=== PATIENT | female | born 1960 | race Caucasian/White ===

== ENCOUNTER 2018-04-09 17:11 | Emergency (ER) | payer SELFPAY ==
--- NOTE | 2018-04-09 19:15 | EDPHYS ---
Physician Documentation [facility] Name: Meli Richardson Age: 57 yrs Sex: Female : 1960 Arrival Date: 04/09/2018 Time: 17:16 Bed 12 Private MD: Rupert Jimenez V ED Physician Sam Flannery HPI: 04/09 19:03 This 57 yrs old Female presents to ER via Ambulatory with complaints of Fall snw Injury - WRIST. 19:03 Details of fall: The patient fell from an upright position, while dancing. Onset: The snw symptoms/episode began/occurred suddenly, last night. Associated injuries: The patient sustained right hand, decreased range of motion, painful injury, swelling. Severity of symptoms: At their worst the symptoms were moderate. The patient has not experienced similar symptoms in the past. The patient has not recently seen a physician. Pt dancing last pm and boots slipped out from under her, pt reached back with right hand to catch her fall. Historical: - Allergies: 17:37 No Known Allergies; ph - Home Meds: 17:37 losartan-hydrochlorothiazide oral oral [Active]; ph - PMHx: 17:37 Hypertension; ph - PSHx: 17:37 partial thyroidectomy; Tubal ligation; ph - Immunization history:: Adult Immunizations. - Social history:: Smoking status: unknown. - Ebola Screening: : No symptoms or risks identified at this time. ROS: 19:02 Constitutional: Negative for fever, chills, and weight loss, Eyes: Negative for injury, snw pain, redness, and discharge, ENT: Negative for injury, pain, and discharge, Neck: Negative for injury, pain, and swelling, Cardiovascular: Negative for chest pain, palpitations, and edema, Respiratory: Negative for shortness of breath, cough, wheezing, and pleuritic chest pain, Abdomen/GI: Negative for abdominal pain, nausea, vomiting, diarrhea, and constipation, Back: Negative for injury and pain, : Negative for injury, bleeding, discharge, and swelling, Skin: Negative for injury, rash, and discoloration, Neuro: Negative for headache, weakness, numbness, tingling, and seizure, Psych: Negative for depression, anxiety, suicide ideation, homicidal ideation, and hallucinations. 19:02 MS/extremity: Positive for injury or acute deformity, decreased range of motion, pain, swelling, tenderness, of the right wrist/forearm. Exam: 19:01 Constitutional: This is a well developed, well nourished patient who is awake, alert, snw and in no acute distress. Head/Face: Normocephalic, atraumatic. Eyes: Pupils equal round and reactive to light, extra-ocular motions intact. Lids and lashes normal. Conjunctiva and sclera are non-icteric and not injected. Cornea within normal limits. Periorbital areas with no swelling, redness, or edema. ENT: Nares patent. No nasal discharge, no septal abnormalities noted. Tympanic membranes are normal and external auditory canals are clear. Oropharynx with no redness, swelling, or masses, exudates, or evidence of obstruction, uvula midline. Mucous membranes moist. Neck: Trachea midline, no thyromegaly or masses palpated, and no cervical lymphadenopathy. Supple, full range of motion without nuchal rigidity, or vertebral point tenderness. No Meningismus. Chest/axilla: Normal chest wall appearance and motion. Nontender with no deformity. No lesions are appreciated. Cardiovascular: Regular rate and rhythm with a normal S1 and S2. No gallops, murmurs, or rubs. Normal PMI, no JVD. No pulse deficits. Respiratory: Lungs have equal breath sounds bilaterally, clear to auscultation and percussion. No rales, rhonchi or wheezes noted. No increased work of breathing, no retractions or nasal flaring. Abdomen/GI: Soft, non-tender, with normal bowel sounds. No distension or tympany. No guarding or rebound. No evidence of tenderness throughout. Back: No spinal tenderness. No costovertebral tenderness. Full range of motion. Skin: Warm, dry with normal turgor. Normal color with no rashes, no lesions, and no evidence of cellulitis. Neuro: Awake and alert, GCS 15, oriented to person, place, time, and situation. Cranial nerves II-XII grossly intact. Motor strength 5/5 in all extremities. Sensory grossly intact. Cerebellar exam normal. Normal gait. Psych: Awake, alert, with orientation to person, place and time. Behavior, mood, and affect are within normal limits. 19:01 Musculoskeletal/extremity: Extremities: grossly normal except: ROM: limited active range of motion due to pain, Circulation is intact in all extremities. Sensation intact. Vital Signs: 17:36 BP 171 / 109; Pulse 85; Resp 18; Temp 97.8; Pulse Ox 97% on R/A; Weight 69.4 kg; Height ph 5 ft. 7 in. (170.18 cm); Pain 6/10; 17:37 ph 19:45 BP 173 / 95; Pulse 74; Resp 18; Pulse Ox 98% ; tl3 17:36 Body Mass Index 23.96 (69.40 kg, 170.18 cm) ph 17:37 Pt reports that she forgot to take her losartan this morning ph MDM: 18:31 Patient medically screened. snw 19:16 Data reviewed: vital signs, nurses notes. Data interpreted: Pulse oximetry: on room air snw is 97 %. Interpretation: normal. Counseling: I had a detailed discussion with the patient and/or guardian regarding: the historical points, exam findings, and any diagnostic results supporting the discharge/admit diagnosis, the presence of at least one elevated blood pressure reading (>120/80) during this emergency department visit, radiology results, the need for outpatient follow up, to return to the emergency department if symptoms worsen or persist or if there are any questions or concerns that arise at home. Special discussion: I have referred the patient to see his PCP for further evaluation of high blood pressure. Based on the history and exam findings, there is no indication for further emergent testing or inpatient evaluation. I discussed with the patient/guardian the need to see the orthopedic surgeon for further evaluation of the symptoms. I discussed with the patient/guardian the need to see the primary care provider for further evaluation of the symptoms. 04/09 17:55 Order name: Forearm Right XRAY; Complete Time: 19:56 snw 04/09 19:01 Order name: Sugar Tong Forearm Splint; Complete Time: 19:43 snw 04/09 19:01 Order name: Sling; Complete Time: 19:43 snw Administered Medications: 19:43 Drug: [place] 5 mg-325 mg 1 tabs Route: PO; tl3 19:43 Follow up: Response: Medication administered at discharge. tl3 Disposition: 04/09/18 19:15 Discharged to Home. Impression: Fall on same level, unspecified, Right distal radius fracture. - Condition is Stable. - Discharge Instructions: Cast or Splint Care, Adult, Forearm Fracture, Hypertension, RICE for Routine Care of Injuries, How to Use a Sling. - Prescriptions for Tylenol- Codeine #3 300-30 mg Oral Tablet - take 2 tablets by ORAL route every 6 hours As needed; 16 tablet. - Work release form, Medication Reconciliation Form, Thank You Letter, Antibiotic Education, Prescription Opioid Use form. - Follow up: Glen Pritchett MD; When: 2 - 3 days; Reason: Recheck today's complaints, Continuance of care, Re-evaluation by your physician. Addendum: 04/16/2018 11:48 Co-signature as Attending Physician, Sam Flannery MD. g s Signatures: Dispatcher [employer] EDMS Addie Fischer, GRAPHIC ARTS TECHNICIAN-C GRAPHIC ARTS TECHNICIAN-Csnw Cheyanne Bland, RN RN Sam Flannery MD MD Radha Cano, CHELSEA RN tl3 Corrections: (The following items were deleted from the chart) 04/09 20:06 19:15 04/09/2018 19:15 Discharged to Home. Impression: Fall on same level, unspecified; tl3 Right distal radius fracture. Condition is Stable. Forms are Medication Reconciliation Form, Thank You Letter, Antibiotic Education, Prescription Opioid Use. Follow up: Dr. Glen Pritchett; When: 2 - 3 days; Reason: Recheck today's complaints, Continuance of care, Re-evaluation by your physician. snw
--- NOTE | 2018-04-09 19:15 | ER ---
Nurse's Notes [facility] Name: Meli Richardson Age: 57 yrs Sex: Female : 1960 Arrival Date: 04/09/2018 Time: 17:16 Bed 12 Private MD: Rupert Jimenez V Diagnosis: Fall on same level, unspecified;Right distal radius fracture Presentation: 04/09 17:32 Presenting complaint: Patient states: Reports falling last night while out dancing, c/o ph pain to R wrist and R buttock, denies LOC or head injury, reports difficulty moving R wrist. Transition of care: patient was not received from another setting of care. Onset of symptoms was April 09, 2018. Risk Assessment: Do you want to hurt yourself or someone else? Patient reports no desire to harm self or others. Initial Sepsis Screen: Does the patient meet any 2 criteria? No. Patient's initial sepsis screen is negative. Does the patient have a suspected source of infection? No. Patient's initial sepsis screen is negative. Care prior to arrival: Medication(s) given: Motrin, 800 mg, 1700. 17:32 Method Of Arrival: Ambulatory ph 17:32 Acuity: CALLY 4 ph Triage Assessment: 19:47 General: Appears uncomfortable, Behavior is calm, cooperative, appropriate for age. tl3 Historical: - Allergies: 17:37 No Known Allergies; ph - Home Meds: 17:37 losartan-hydrochlorothiazide oral oral [Active]; ph - PMHx: 17:37 Hypertension; ph - PSHx: 17:37 partial thyroidectomy; Tubal ligation; ph - Immunization history:: Adult Immunizations. - Social history:: Smoking status: unknown. - Ebola Screening: : No symptoms or risks identified at this time. Screenin:46 Abuse screen: Denies threats or abuse. Nutritional screening: No deficits noted. tl3 Tuberculosis screening: No symptoms or risk factors identified. Fall Risk None identified. Assessment: 19:46 Pain: Complains of pain in right hand. tl3 Vital Signs: 17:36 BP 171 / 109; Pulse 85; Resp 18; Temp 97.8; Pulse Ox 97% on R/A; Weight 69.4 kg; Height ph 5 ft. 7 in. (170.18 cm); Pain 6/10; 17:37 ph 19:45 BP 173 / 95; Pulse 74; Resp 18; Pulse Ox 98% ; tl3 17:36 Body Mass Index 23.96 (69.40 kg, 170.18 cm) ph 17:37 Pt reports that she forgot to take her losartan this morning ph ED Course: 17:16 Patient arrived in ED. sb2 17:16 Rupert Jimenez MD is Private Physician. sb2 17:36 Triage completed. ph 17:38 Arm band placed on. ph 17:55 Add[facility] Fischer [facility]C [facility] snw 17:55 Sam Flannery MD is Attending Physician. snw 18:49 Forearm Right XRAY In Process Unspecified. EDMS 19:04 Glen Pritchett MD is Referral Physician. snw 19:46 Patient has correct armband on for positive identification. tl3 19:46 No provider procedures requiring assistance completed. Patient did not have IV access tl3 during this emergency room visit. 19:59 Orthoglass splint: Sugar tong splint applied on right arm. ds4 Administered Medications: 19:43 Drug: [place] 5 mg-325 mg 1 tabs Route: PO; tl3 19:43 Follow up: Response: Medication administered at discharge. tl3 Outcome: 19:15 Discharge ordered by . snw 19:46 Discharged to home ambulatory. tl3 19:46 Condition: stable 19:46 Discharge instructions given to patient, Instructed on discharge instructions, follow up and referral plans. medication usage, Demonstrated understanding of instructions, follow-up care, medications, splint care, Prescriptions given X 1. 20:06 Patient left the ED. tl3 Signatures: Dispatcher [employer] EDMS Addie Fischer FNP-C RE RECORDING MIXER-CsnFranklyn Segura ds4 Cheyanne Bland, RN RN Natacha Mitchell sb2 Radha Cano, RN RN tl3
[2018-04-09] MEDS ORDERED: HYDROCODONE/APAP 5/325 MG TAB ONE (19:46)
--- NOTE | 2018-04-09 19:55 | RAD REPORT ---
EXAM DESCRIPTION: RAD - Forearm Right - 04/09/2018 6:49 pm CLINICAL HISTORY: Fall, arm pain COMPARISON: None. FINDINGS: Transverse fracture of the distal radius is present 8 mm from the articular surface. No di straction or angulation. Ulna fracture is not identified. Carpal bones are normally positioned. Soft tissue swelling present around the wrist joint. There is no dislocation or periosteal reaction noted. No foreign body seen. IMPRESSION: Distal radius fracture without distraction or angulation.
== END 2018-04-09 20:06 | disposition home or self-care (01) ==
LOC: ER 17:11
DX: S52.501A Unspecified fracture of the lower end of right radius, initial encounter for closed fracture (principal); W01.0XXA Fall on same level from slipping, tripping and stumbling without subsequent striking against object, initial encounter; Y93.41 Activity, dancing; Y92.838 Other recreation area as the place of occurrence of the external cause; I10 Essential (primary) hypertension
CPT/HCPCS: 99284

== ENCOUNTER 2023-08-23 10:15 | Observation (INO) | payer BC ==
--- OUTSIDE RECORDS SUMMARY | 2023-08-23 10:18 | XMS REPORT | Continuity of Care Document ---
Author Name Unknown Address [address] [place] [address] [facility] thconnect Address [address] [place] [address] Care Team Providers Care Process Environmental Technician Name Role Phone Unavailable Unavailable Unavailable Results Test Description Test Time Test Comments Results Result Co mments Source COMPREHENSIVE METABOLIC [id number] 05:21:52* Test Item Value Reference Range Interpretation Comme nts GLUCOSE (test code = 2217) 97 MG/DL 70-99 BUN (test code = 2208) 10 MG/DL 8-23 CREATININE (test code = 2214) 0.92 MG/DL 0.60-1.30 eGFR (2020 CKD-EPI) (test code = 25807) 71 ML/MIN/1.73 >60 CALC BUN/CREAT (test code = 2235) 11 RATIO 6-28 SODIUM (test code = 2231) 144 MEQ/L 133-146 POTASSIUM (test code = 2228) 4.6 MEQ/L 3.5-5.4 CHLORIDE (test code = 2215) 108 MEQ/L 95-107 H CARBON DIOXIDE (test code = 2206) 27 MEQ/L 19-31 CALCIUM (test code = 2209) 9.8 MG/DL 8.5-10.5 PROTEIN, TOTAL (test code = 2229) 7.0 G/DL 6.1-8.3 ALBUMIN (test code = 2201) 4.4 G/DL 3.5-5.2 CALC GLOBULIN (test code = 2240) 2.6 G/DL 1.9-3.7 CALC A/G RATIO (test code = 2234) 1.7 RATIO 1.0-2.6 BILIRUBIN, TOTAL (test code = 2207) 0.4 MG/DL See_Comment [Automated me ssage] The system which generated this result transmitted reference range: <=1.2. The reference range was not used to interpret this result as normal/abnormal. ALKALINE PHOSPHATASE (test code = 2204) 92 U/L 40-140 AST (test code = 2218) 20 U/L 9-40 ALT (test code = 2219) 20 U/L 5-40 UNLESS OTHERWISE INDICATED, ALL TESTING PERFORMED [facility] [address] [place] [id number] GANG MINER: LUIZA IVAN M.D. CLIA NUMBER [id number] [facility] [place]. [id number]
[2023-08-23] MEDS ORDERED: ONDANSETRON 4 MG/2 ML VIAL ONE ×2 (10:37→13:36)
[2023-08-23] MEDS ORDERED: MORPHINE 4 MG/ML SYR ONE (10:37)
[2023-08-23] MEDS ORDERED: KETOROLAC 30 MG/ML INJ ONE ×2 (10:37→13:36)
[2023-08-23 10:40] LABS: Absolute Lymphocytes (CBC) 0.6 K/uL (0.7-4.9); Absolute Monocytes 0.9 K/uL (0.1-1.3); Absolute Neutrophil 15.9 K/uL (1.8-8.0); Basophils % 0.2 % (0-1.3); Hematocrit 38.7 % (36.0-45.0); Hemoglobin 12.8 g/dL (12.0-15.0); Lymphocytes % 3.7 % (15.3-44.8); MCH 28.2 pg (27.0-35.0); MCHC 33.2 g/dL (32.0-36.0); MCV 84.9 fL (80-100); MPV 6.9 fL (7.6-11.3); Neutrophils % 91.1 % (41.7-73.7); Platelets 431 thou/uL (152-406); RBC Red Blood Cell Count 4.55 M/uL (3.86-4.86); Red Cell Distribution Width 15.5 % (12.1-15.2)
[2023-08-23 10:57] LABS: Albumin 3.3 g/dL (3.4-5.0); Albumin/Globulin Ratio 0.8 (1.1-1.8); Anion Gap 9.4 mEq/L (5.0-15.0); Bilirubin Total 0.6 mg/dL (0.2-1.0); Globulin 4.2 g/dL (2.3-3.5); Potassium 3.4 mEq/L (3.5-5.1); Protein, Total 7.5 g/dL (6.4-8.2)
--- NOTE | 2023-08-23 11:34 | RAD REPORT ---
EXAM DESCRIPTION: CTAbdomen Pelvis W Contrast - 08/23/2023 11:18 am CLINICAL HISTORY: Abdominal pain. ABD PAIN COMPARISON: No comparisons TECHNIQUE: Biphasic CT imaging of the abdomen and pelvis was performed with 100 ml non-ionic IV cont rast. All CT scans are performed using dose optimization technique as appropriate and may include automated exposure control or mA/KV adjustment according to patient size. FINDINGS: The lung bases are clear.Large hiatal hernia. The liver, spleen, pancreas, adrenal glands and kidneys are within normal limits. No bowel obstruction, free air, free fluid or abscess. Mild sigmoid diverticulosis coli without diver ticulitis. Significant dilatation of the appendix which contains an appendicolith measure up to 20 mm . Moderate right lower quadrant surrounding inflammatory changes. Findings likely indicate acute appe ndicitis. No evidence of significant lymphadenopathy. No suspicious bony findings. IMPRESSION: Moderately severe acute appendicitis.
--- NOTE | 2023-08-23 11:42 | EDPHYS ---
Physician Documentation [facility] Name: Meli Richardson Age: 63 yrs Sex: Female : 1960 Arrival Date: 08/23/2023 Time: 10:15 Bed 14 Private MD: ED Physician Jose Luis Wilkes HPI: 08/22 10:30 This 63 yrs old Female presents to ER via Wheelchair with complaints of ec2 Abdominal Pain. 10:30 Patient arrives today for evaluation of right-sided abdominal pain. Patient reports ec2 that she has been having pain since yesterday. Patient reports associated nausea and decreased p.o. intake. Reports no urinary complaints, no stool changes. Patient reports previous tubal ligation. Denies any previous abdominal surgeries otherwise. Patient with history of hypertension, takes hydrochlorothiazide and losartan, is a daily smoker as well half pack per day.. Historical: - Allergies: 10:27 No Known Allergies; ll1 - PMHx: 10:20 Hypertension; ll1 10:27 Hypercholesterolemia; ll1 - PSHx: 10:27 None; ll1 - Immunization history:: Adult Immunizations up to date. - Social history:: Smoking status: Patient reports the use of cigarette tobacco products, smokes one-half pack cigarettes per day. ROS: 10:30 Constitutional: as per hpi ec2 Exam: 10:30 Constitutional: GEN: NAD Head: atraumatic Eyes: EOMI Ears: External ears are ec2 normal. CV: regular rate LUNGS: no respiratory distress ABD: non-distended, soft, minimally tender in the right lower quadrant, no guarding, not rigid SKIN: no evidence of rashes MSK: no evidence of trauma NEURO: moves all extremities equally Vital Signs: 10:28 Temp 98.1; Weight 64.41 kg; Height 5 ft. 6 in. ; Pain 10/10; ll1 10:30 BP 125 / 86; Pulse 93; Resp 15; Pulse Ox 96% on R/A; ko1 10:37 BP 123 / 111 RA Sitting (auto/reg); Pulse 95 MON; Resp 19 S; Pulse Ox 99% on R/A; jg11 12:30 BP 128 / 98; Pulse 91; Resp 16; Temp 99.5(O); Pulse Ox 97% on R/A; Pain 5/10; tl4 10:28 Body Mass Index 22.92 (64.41 kg, 167.64 cm) ll1 10:28 Pain Scale: Adult ll1 12:30 Pain Scale: Adult tl4 Keyanna Coma Score: 12:30 Eye Response: spontaneous(4). Motor Response: obeys commands(6). Verbal Response: tl4 oriented(5). Total: 15. MDM: 10:24 Patient medically screened. ec2 10:30 ED course: Patient arrives today for evaluation of right lower quadrant abdominal pain. ec2 Examination remarkable for well-appearing nontoxic but was otherwise in no acute distress with a reassuring examination with some right lower quadrant TTP. Will obtain lab work, urine studies, CT imaging and treat the patient's symptoms. Currently evaluating for processes such as obstruction, pancreatitis, intra-abdominal process.. 10:54 ED course: CBC shows leukocytosis.. ec2 11:40 ED course: Patient with appendicitis noted on CT scan. Will add on septic workup given ec2 that we have now identified an infectious process with the SIRS criteria. Will admit with surgical consultation. Discussed case with surgery as well as hospitalist, pending admission.. 11:42 Data reviewed: vital signs. ec2 08/22 10:30 Order name: CBC with Diff ec2 08/22 10:30 Order name: CMP; Complete Time: 11:00 ec2 08/22 10:30 Order name: Lipase; Complete Time: 11:00 ec2 08/22 10:43 Order name: CBC Smear Scan EDMS 08/22 11:40 Order name: Blood Culture Adult (2) ec2 08/22 11:40 Order name: Lactate w/ 2H reflex if indic. ec2 08/22 11:40 Order name: Protime (+inr) ec2 08/22 11:40 Order name: Ptt, Activated ec2 08/22 12:14 Order name: Basic Metabolic Panel EDMS 08/22 12:14 Order name: Basic Metabolic Panel EDMS 08/22 12:14 Order name: Basic Metabolic Panel EDMS 08/22 12:14 Order name: CBC with Automated Diff EDMS 08/22 12:14 Order name: CBC with Automated Diff EDMS 08/22 12:14 Order name: CBC with Automated Diff EDMS 08/22 10:30 Order name: CT Abd/Pelvis - IV Contrast Only; Complete Time: 11:40 ec2 08/22 11:40 Order name: EKG; Complete Time: 11:41 ec2 08/22 12:14 Order name: CONS Physician Consult EDAZ 08/22 10:30 Order name: IV Saline Lock; Complete Time: 10:38 ec2 08/22 10:30 Order name: Labs collected and sent; Complete Time: 10:38 ec2 08/22 11:40 Order name: Accucheck; Complete Time: 11:43 ec2 08/22 11:40 Order name: Cardiac monitoring; Complete Time: 11:42 ec2 08/22 11:40 Order name: EKG - Nurse/Tech; Complete Time: 12:48 ec2 08/22 11:40 Order name: IV Saline Lock - Large Bore; Complete Time: 11:43 ec2 08/22 11:40 Order name: O2 Per Protocol; Complete Time: 11:42 ec2 08/22 11:40 Order name: O2 Sat Monitoring; Complete Time: 11:42 ec2 08/22 11:40 Order name: Vital Signs; Complete Time: 11:42 ec2 08/22 11:40 Order name: NPO; Complete Time: 11:42 ec2 Administered Medications: 10:39 Drug: Ondansetron IVP 4 mg IVP once; over 2 minutes Route: IVP; Site: left antecubital; ko1 12:09 Follow up: Response: No adverse reaction tl4 10:47 Drug: TORadol - Ketorolac IVP 15 mg IVP once Route: IVP; Site: left antecubital; ko1 12:09 Follow up: Response: No adverse reaction; Pain is decreased tl4 10:48 Drug: morphine IVP or IV 4 mg IVP once over 4 mins Route: IVP; Infused Over: 4 mins; ko1 Site: left antecubital; 12:10 Follow up: Response: No adverse reaction; Pain is decreased tl4 12:20 Drug: Piperacillin-Tazobactam IVPB 3.375 grams IVPB once over 60 mins; (mix in NS 100 tl4 mL) Route: IVPB; Rate: 100 ml/hr; Infused Over: 60 mins; Site: left antecubital; Delivery: Primary tubing; 13:08 Follow up: Response: No adverse reaction; IV Status: Completed infusion; IV Intake: tl4 100ml Disposition Summary: 08/23/23 11:42 Hospitalization Ordered Notes: Hospitalization Status: Inpatient Admission ec2 Condition: Stable ec2 Problem: new ec2 Symptoms: have improved ec2 Bed/Room Type: Standard ec2 Provider: Helio Camarillo(08/23/23 11:54) ec2 Location: [facility] ER HOLD(08/23/23 13:03) kb3 Room Assignment: ERHOLD-(08/23/23 13:03) kb3 Diagnosis - Acute appendicitis with localized peritonitis ec2 - Sepsis, unspecified organism ec2 Forms: - Medication Reconciliation Form ec2 - SBAR form ec2 - Leadership Thank You Letter ec2 Critical care time excluding procedures: 11:40 Critical care time: Bedside Care: 30 minutes, Consultation: 10 minutes. Total time: 40 ec2 minutes Signatures: Dispatcher [employer] EDMS Krysta Gamble RN RN ll1 Gwen Barahona RN RN kb3 Fiordaliza Duran RN RN ko1 Jose Luis Wilkes MD MD ec2 Raudel Pearson RN RN tl4 Corrections: (The following items were deleted from the chart) 10:54 10:30 ED course: Patient arrives today for evaluation of right lower quadrant abdominal ec2 pain. Examination remarkable for well-appearing nontoxic but was otherwise in no acute distress with a reassuring examination with some right lower quadrant TTP. Will obtain lab work, urine studies, CT imaging and treat the patient's symptoms. Currently railing present such as obstruction, pancreatitis, intra-abdominal process.. ec2 11:48 11:42 Edmund Torrez ec2 ec2 11:50 11:48 Rupert Jimenez ec2 ec2 11:54 11:50 Edmund Torrez ec2 ec2 13:03 11:42 Telemetry/MedSurg (Inpatient) ec2 kb3 13:03 11:42 ec2 kb3
--- NOTE | 2023-08-23 11:42 | ER ---
Nurse's Notes [facility] Name: Meli Richardson Age: 63 yrs Sex: Female : 1960 Arrival Date: 08/23/2023 Time: 10:15 Bed 14 Private MD: Diagnosis: Acute appendicitis with localized peritonitis;Sepsis, unspecified organism Presentation: 08/22 10:28 Chief complaint: Patient states: R sided abdominal pain started 9 AM yesterday. ll1 Coronavirus screen: Vaccine status: Patient reports receiving the 2nd dose of the covid vaccine. Client denies travel out of the [place] in the last 14 days. At this time, the client does not indicate any symptoms associated with coronavirus-19. Ebola Screen: Patient denies travel to an Ebola-affected area in the 21 days before illness onset. Initial Sepsis Screen: Does the patient meet any 2 criteria? No. Patient's initial sepsis screen is negative. Does the patient have a suspected source of infection? No. Patient's initial sepsis screen is negative. Risk Assessment: Do you want to hurt yourself or someone else? Patient reports no desire to harm self or others. Onset of symptoms was August 22, 2023. 10:28 Method Of Arrival: Wheelchair ll1 10:28 Acuity: CALLY 3 ll1 Triage Assessment: 10:28 General: Appears uncomfortable, Behavior is calm, cooperative, appropriate for age. ll1 Pain: Complains of pain in abdomen Quality of pain is described as aching. GI: Reports lower abdominal pain. Historical: - Allergies: 10:27 No Known Allergies; ll1 - PMHx: 10:20 Hypertension; ll1 10:27 Hypercholesterolemia; ll1 - PSHx: 10:27 None; ll1 - Immunization history:: Adult Immunizations up to date. - Social history:: Smoking status: Patient reports the use of cigarette tobacco products, smokes one-half pack cigarettes per day. Screenin:[facility] ED Fall Risk Assessment (Adult) History of falling in the last 3 months, ko1 including since admission No falls in past 3 months (0 pts) Confusion or Disorientation No (0 pts) Intoxicated or Sedated No (0 pts) Impaired Gait No (0 pts) Mobility Assist Device Used No (0 pt) Altered Elimination No (0 pt) Score/Fall Risk Level 0 - 2 = Low Risk Oriented to surroundings, Maintained a safe environment, Educated pt \T\ family on fall prevention, incl call for assistance when getting out of bed, Assessed \T\ reinforced patient's understanding of fall precautions, Provided non-skid footwear, Hourly rounding (assess needs \T\ fall precautionary measures) done, Used ambulatory aids as needed (educated on \T\ assisted with), Used gait belt as appropriate. Abuse screen: Denies threats or abuse. Denies injuries from another. Nutritional screening: No deficits noted. Tuberculosis screening: No symptoms or risk factors identified. Assessment: 10:30 General: Appears uncomfortable, Behavior is cooperative, appropriate for age, anxious. ko1 Pain: Complains of pain in abdomen. Neuro: No deficits noted. Cardiovascular: No deficits noted. Respiratory: No deficits noted. GI: Bowel sounds present X 4 quads. Abd is soft X 4 quads. : No deficits noted. EENT: No deficits noted. Derm: No deficits noted. Musculoskeletal: No deficits noted. 12:15 Reassessment: No changes from previously documented assessment. Patient and/or family tl4 updated on plan of care and expected duration. Pain level reassessed. Patient is alert, oriented x 3, equal unlabored respirations, skin warm/dry/pink. Pt states pain is getting worse. Will notify provider. Will continue to monitor. Vital Signs: 10:28 Temp 98.1; Weight 64.41 kg; Height 5 ft. 6 in. ; Pain 10/10; ll1 10:30 BP 125 / 86; Pulse 93; Resp 15; Pulse Ox 96% on R/A; ko1 10:37 BP 123 / 111 RA Sitting (auto/reg); Pulse 95 MON; Resp 19 S; Pulse Ox 99% on R/A; jg11 12:30 BP 128 / 98; Pulse 91; Resp 16; Temp 99.5(O); Pulse Ox 97% on R/A; Pain 5/10; tl4 10:28 Body Mass Index 22.92 (64.41 kg, 167.64 cm) ll1 10:28 Pain Scale: Adult ll1 12:30 Pain Scale: Adult tl4 Vitals: 12:30 Cardiac Rhythm Assessment Regular Sinus rhythm. tl4 [place] Coma Score: 12:30 Eye Response: spontaneous(4). Motor Response: obeys commands(6). Verbal Response: tl4 oriented(5). Total: 15. ED Course: 10:17 Patient arrived in ED. rg4 10:18 Jose Luis Wilkes MD is Attending Physician. ec2 10:20 Fiordaliza Duran, RN is Primary Nurse. ko1 10:20 Arm band placed on Patient placed in an exam room, on a stretcher. ll1 10:28 Triage completed. ll1 10:30 Patient has correct armband on for positive identification. Bed in low position. Call ko1 light in reach. Side rails up X2. Provided Education on: na. Client placed on continuous cardiac and pulse oximetry monitoring. NIBP monitoring applied. healthcare recruiter on. 10:30 No provider procedures requiring assistance completed. ko1 10:37 Initial lab(s) drawn, by me, sent to lab. Inserted saline lock: 22 gauge in left jg11 antecubital area, using aseptic technique. Blood collected. 10:38 Warm blanket given. jg11 10:38 CBC with Diff Sent. jg11 10:38 CMP Sent. jg11 10:38 Lipase Sent. jg11 11:20 CT Abd/Pelvis - IV Contrast Only In Process Unspecified. EDMS 11:41 Edmund Torrez MD is Hospitalizing Provider. ec2 11:48 Rupert Jimenez MD is Hospitalizing Provider. ec2 11:50 Jose Luis Wilkes MD is Hospitalizing Provider. ec2 11:50 Edmund Torrez MD is Hospitalizing Provider. ec2 11:54 Helio Camarillo MD is Hospitalizing Provider. ec2 11:55 First set of blood cultures drawn by me. ko1 12:01 Lactate w/ 2H reflex if indic. Sent. ko1 12:01 Protime (+inr) Sent. ko1 12:01 Ptt, Activated Sent. ko1 12:49 Blood Culture Adult (2) Sent. tl4 12:50 Placed in gown. Door closed. Lights dimmed. Warm blanket given. tl4 12:55 Second set of blood cultures drawn by me, EKG done, by ED staff, reviewed by Helio Camarillo MD. 13:05 Patient admitted, IV remains in place. tl4 Administered Medications: 10:39 Drug: Ondansetron IVP 4 mg IVP once; over 2 minutes Route: IVP; Site: left antecubital; ko1 12:09 Follow up: Response: No adverse reaction tl4 10:47 Drug: TORadol - Ketorolac IVP 15 mg IVP once Route: IVP; Site: left antecubital; ko1 12:09 Follow up: Response: No adverse reaction; Pain is decreased tl4 10:48 Drug: morphine IVP or IV 4 mg IVP once over 4 mins Route: IVP; Infused Over: 4 mins; ko1 Site: left antecubital; 12:10 Follow up: Response: No adverse reaction; Pain is decreased tl4 12:20 Drug: Piperacillin-Tazobactam IVPB 3.375 grams IVPB once over 60 mins; (mix in NS 100 tl4 mL) Route: IVPB; Rate: 100 ml/hr; Infused Over: 60 mins; Site: left antecubital; Delivery: Primary tubing; 13:08 Follow up: Response: No adverse reaction; IV Status: Completed infusion; IV Intake: tl4 100ml Medication: 10:30 VIS not applicable for this client. ko1 Intake: 13:08 IV: 100ml; Total: 100ml. tl4 Outcome: 11:42 Decision to Hospitalize by Provider. ec2 13:07 Admitted to OR accompanied by nurse, via wheelchair, with chart, tl4 13:07 Condition: stable 13:07 Instructed on the need for admit, 13:08 Patient left the ED. tl4 Signatures: Dispatcher [employer] Sharon Gutierrez rg4 Krysta Gamble RN RN ll1 Fiordaliza Duran RN RN ko1 Jose Luis Wilkes MD MD ec2 Raudel Pearson RN RN tl4 Jarret Rubio jg11
[2023-08-23 11:57] LABS: Blood Morphology Comment NOT SEEN (NOT SEEN); Dohle Bodies PRESENT; Platelet Estimate INCR; White Blood Cell Scan OK (OK)
[2023-08-23] MEDS ORDERED: NA CHLORIDE 0.9% 100 ML ONE (12:13)
[2023-08-23] MEDS ORDERED: PIPERACIL/TAZO 3.375 GM VIAL IV ONE (12:13)
[2023-08-23 12:15] LABS: PT Prothrombin Time 11.5 SECONDS (9.5-12.5); PTT, Activated Partial Thromb 26.4 SECONDS (24.3-36.9); Protime INR 1.05
--- NOTE | 2023-08-23 12:19 | P.HP ---
Certification for Inpatient Patient admitted to: Observation With expected LOS: <2 Midnights Patient will require the following post-hospital care: None Practitioner: I am a practitioner with admitting privileges, knowledge of patient current condition, hospital course, and medical plan of care. Services: Services provided to patient in accordance with Admission requirements found in Title 42 Section 412.3 of the Code of Federal Regulations <Addie Medellin - Last Filed: 08/23/23 14:29> Patient History Date of Service: 08/23/23 Reason for admission: acute appendicitis History of Present Illness: Ms. rick is a 63-year-old with a past medical history of hypertension who smokes 1/2 pack/day of cigarettes. She arrived to the ER today with a chief complaint of significant right lower quadrant pain, anorexia, nausea. She has not been able to tolerate foods for greater than [address] evaluation she was found to have moderately severe acute appendicitis. Dr. Baron was consulted, he evaluated her in the emergency department, and took her to the OR for an appendectomy. Home medications list reviewed: No - Past Medical/Surgical History Has patient received pneumonia vaccine in the past: No Diabetic: No -: HTN -: Thyroid cyst -: Removal of thyroid cyst at age 11 -: BTL Psychosocial/ Personal History: Lives at home with her . Smokes 1/2 ppd unless they are drinking. She states when they drink, she chain smokes - Family History Family History: Reviewed- Non-Contributory - Social History Smoking Status: Current every day smoker Alcohol use: Yes CD- Drugs: No Caffeine use: Yes Place of Residence: Home <Addie Medellin - Last Filed: 08/23/23 14:29> Date of Service: 08/23/23 <Helio Camarillo - Last Filed: 08/25/23 03:53> Allergies No Known Allergies Allergy (Unverified 08/23/23 12:21) Review of Systems 10-point ROS is otherwise unremarkable General: As per HPI Gastrointestinal: Abdominal Pain <Addie Medellin - Last Filed: 08/23/23 14:29> Physical Examination - Physical Exam General: Alert, In no apparent distress, Oriented x3, Other (thin, appears dehydrated) HEENT: Atraumatic, Normocephalic Neck: Supple, JVD not distended Respiratory: Normal air movement Cardiovascular: No edema, Normal pulses, Regular rate/rhythm Capillary refill: <2 Seconds Gastrointestinal: Hypoactive, Other (assessed post pain medication ), Tenderness Musculoskeletal: No clubbing, No swelling Integumentary: No rashes Neurological: Normal speech, Normal tone Lymphatics: No axilla or inguinal lymphadenopathy External genitalia: Deferred Rectal: Deferred - Studies Laboratory Data (last 24 hrs) 08/23/23 08/23/23 08/23/23 11:50 10:33 10:33 WBC 17.40 H Hgb 12.8 Hct 38.7 Plt Count 431 H PT 11.5 INR 1.05 APTT 26.4 Sodium 133 L Potassium 3.4 L BUN 6 L Creatinine 0.85 Glucose 146 H Total Bilirubin 0.6 AST 11 L ALT 24 Alkaline Phosphatase 85 Lipase 32 <Addie Medellin - Last Filed: 08/23/23 14:29> Assessment and Plan - Plan Acute appendicitis: Consult Dr. Baron Appendectomy Zosyn 3.375gms Q 6h Sepsis without shock: trend vital signs, labs, continue IV abx IVF as above dictates Hypokalemia, NPO status: Ns at 125ml/hr monitor and replete electrolytes clear liquids when cleared by Dr. Baron Essential Hypertension: trend blood pressure reconcile home medications and treat prn SCDs for DVT prophylaxis as she is surgical today Code Status: full Discharge Plan: Home Plan to discharge in: 48 Hours - Advance Directives Does patient have a Living Will: No Does patient have a Durable POA for Healthcare: No <Addie Medellin - Last Filed: 08/23/23 14:29> Date of Service: 08/23/23 Patient is seen and examined. Agree with findings as mentioned above. Patient status post appendectomy and placement is clinically doing well. Continue monitoring labs closely. Gentle hydration and IV antibiotics. <Helio Camarillo - Last Filed: 08/25/23 03:53>
[2023-08-23] MEDS: KCL 20 MEQ/100 mL IVPB 20 MEQ/100 ML BAG IV SCH (13:00)
[2023-08-23] MEDS: NA CHLORIDE 0.9% 1,000 ML IV SCH (13:00)
[2023-08-23] MEDS: Ringers Lactate 1,000 ML IV ONE (13:07)
[2023-08-23] MEDS ORDERED: FENTANYL CITR 100 MCG/2 ML ONE (13:36)
[2023-08-23] MEDS ORDERED: MIDAZOLAM HCL 2 MG/2 ML INJ ONE (13:36)
[2023-08-23] MEDS ORDERED: propofoL 200 MG/20 ML VIAL IV ONE (13:36)
[2023-08-23] MEDS ORDERED: LIDOCAINE 2% MPF 5 ML VIAL ONE (13:36)
[2023-08-23] MEDS ORDERED: dexAMETHasone 10 MG/ML VIAL ONE (13:36)
[2023-08-23] MEDS ORDERED: ROCURONIUM 50 MG/5 ML VIAL IV ONE (13:37)
[2023-08-23] MEDS ORDERED: MORPHINE 4 MG/ML SYR IV PRN (14:30)
[2023-08-23] MEDS: BUPIVACAINE 0.5% PF 10 ML VIAL ONE (14:43)
[2023-08-23] MEDS ORDERED: NEOSTIGMINE 1 MG/ML -10 ML VIAL ONE (15:33)
--- NOTE | 2023-08-23 15:41 | P.OP ---
Date of Service: 08/23/23 Preop diagnosis: Acute appendicitis Postop diagnosis: Acute suppurative appendicitis with appendicolith Procedure performed: Laparoscopic appendectomy Surgeon: Rich Baron MD Railroad Supervisor Of Engines: Taylor VERA Estimated blood loss: Minimal Specimen: Appendix and appendicolith Findings: As above Anesthesia: General Complications: None Drains: None Fluids and blood products: Nonapplicable Disposition: Recovery room Operative note: Patient brought to the OR and placed in supine position. General anesthesia began. Patient prepped and draped in usual sterile fashion. Marcaine 0.5% infiltrated locally. 15 blade used to make a 1 cm supraumbilical midline incision. Subcutaneous tissue divided and bleeding controlled with cautery. Fascia identified and divided. #1 Vicryl stay suture placed. Peritoneal cavity entered with sharp and blunt dissection. 12 mm trocar placed into the peritoneal cavity under direct vision. Pneumoperitoneum established. Then, two 5 mm trocars placed under direct vision1 in the suprapubic region and 1 in the left lower quadrant. Laparoscopy revealed acute retrocecal appendicitis with the tip being very friable and the appendicolith visible near the tip. No other evidence of disease identified. Endo RAÚL stapling device and ligature used to divide the mesoappendix. The entire appendix and appendicolith retrieved to the umbilicus via Endo Catch bag. Right side of the abdomen irrigated and effluent clear. No evidence of bleeding or bowel injury appreciated. Minimal oozing noted on the mesoappendix which was easily controlled with vascular clips. Subsequently all trocars removed under direct vision. Stay sutures tied to each other to reapproximate the fascial defect. Subcutaneous wounds irrigated and bleeding controlled cautery. 3-0 chromic used to reapproximate subcutaneous tissue and barney used to close skin. Sterile dressing applied and patient awakened. Patient taken to recovery room in good general condition. CC: Dr. Jimenez's office
[2023-08-23] MEDS ORDERED: HYDROMORPHONE HCL 1 MG/ML INJ IV PRN (15:55)
[2023-08-23] MEDS: INSULIN REGULAR (HUMAN) 100 UNIT/ML SQ SCH (16:30)
[2023-08-23 16:51] VITALS: BMI 22.8
--- NOTE | 2023-08-23 17:16 | PREOPCON ---
Date of Consultation: 08/23/2023 Reason For Consultation: Abdominal pain. History Of Present Illness: The patient is a 63-year-old female who comes in with approximately 24-h our history of diffuse abdominal pain localizing to the right lower quadrant associated with some alberto sea. No vomiting and no diarrhea. Occasional constipation. No blood in her stool. No dysuria or h ematuria. No sore throat, runny nose, cough, headaches, or dizziness. No chest pain. Subjective fe eling of fever and chills, but none documented. Review of Systems: Otherwise, unremarkable. Past Medical History: History of hypertension. Past Surgical History: Thyroid surgery, when she was a child younger. Allergies: NO ALLERGIES. Social History: The patient does smoke and drink alcohol. She was counseled on the importance of ce ssation of tobacco. Family History: Noncontributory. Physical Examination: Vital Signs: Stable and she is afebrile. General: She is awake, alert, oriented x3. Head and Neck: Cranial nerves 2 through 12 are grossly within normal limits. No neck masses. No JV D. Throat clear. Neck is supple. Chest: Clear. Heart: S1, S2. Abdomen: Soft. Nondistended. Mild Rovsing sign. Positive bowel sounds. Right middle and right lo wer quadrant tenderness with rebound. No rigidity or guarding. Extremity: Adequately perfused. Nontender. Neuro: Nonfocal. Laboratory Data: Reviewed. Patient has leukocytosis with a left shift. Electrolytes noted and INR is within normal limits. CT scan of the abdomen and pelvis reveals a dilated appendix with marked in flammation around it consistent with acute appendicitis. Assessment: Acute appendicitis. Plan: Admit, NPO, IV fluid, IV antibiotic, to the OR for laparoscopic appendectomy, possible open. The patient understands risks, benefits, and alternatives and agrees to procedure. /MODL Voice ID: [id number] Report ID: [id number]
[2023-08-23] MEDS ORDERED: ONDANSETRON 4 MG/2 ML VIAL IV PRN (18:30)
[2023-08-23] MEDS: PIPER TAZO 3.375 GM in NA CHLORIDE 0.9% 100 ML IV SCH (20:23)
[2023-08-23] MEDS: ONDANSETRON 4 MG/2 ML VIAL IV PRN (20:24)
[2023-08-23] MEDS: HYDROCODONE/APAP 7.5/325 MG TAB PO PRN (20:24)
[2023-08-24 06:29] LABS: Anion Gap 7.7 mEq/L (5.0-15.0); Magnesium 2.6 mg/dL (1.6-2.4); Phosphorus 2.5 mg/dL (2.5-4.9); Potassium 3.7 mEq/L (3.5-5.1)
[2023-08-24 06:33] LABS: Absolute Lymphocytes (CBC) 0.8 K/uL (0.7-4.9); Absolute Monocytes 0.7 K/uL (0.1-1.3); Absolute Neutrophil 13.5 K/uL (1.8-8.0); Basophils % 0.1 % (0-1.3); Hemoglobin 10.8 g/dL (12.0-15.0); Lymphocytes % 5.5 % (15.3-44.8); MCH 28.3 pg (27.0-35.0); MCHC 32.8 g/dL (32.0-36.0); MCV 86.2 fL (80-100); MPV 7.3 fL (7.6-11.3); Monocytes % 4.7 % (3.3-12.3); Neutrophils % 89.7 % (41.7-73.7); Platelets 347 thou/uL (152-406); RBC Red Blood Cell Count 3.83 M/uL (3.86-4.86); Red Cell Distribution Width 15.5 % (12.1-15.2)
--- NOTE | 2023-08-24 07:11 | P.PN ---
Subjective Date of Service: 08/24/23 Chief Complaint: acute appendicitis Subjective: Improving Ms. rick is a 63-year-old with a past medical history of hypertension who smokes 1/2 pack/day of cigarettes. She arrived to the ER today with a chief complaint of significant right lower quadrant pain, anorexia, nausea. She has not been able to tolerate foods for greater than [address] evaluation she was found to have moderately severe acute appendicitis. Dr. Baron was consulted, he evaluated her in the emergency department, and took her to the OR for an appendectomy. Today 08/24/23 Ms. Rick is status post appendectomy. Moving around in room, up to void, minimal flatus. <Addie Medellin - Last Filed: 08/24/23 07:11> Date of Service: 08/24/23 <Helio Camarillo - Last Filed: 08/25/23 03:54> Review of Systems 10-point ROS is otherwise unremarkable Gastrointestinal: As per HPI <Addie Medellin - Last Filed: 08/24/23 07:11> Physical Examination - Vital Signs Temperature: 98.7 F Blood Pressure: 174/94 Pulse: 84 Respirations: 17 Pulse Ox (%): 96 - Physical Exam General: Alert, In no apparent distress, Oriented x3 HEENT: Atraumatic, Normocephalic Neck: 2+ carotid pulse no bruit Respiratory: Clear to auscultation bilaterally, Other (IS at bedside) Cardiovascular: Normal pulses Capillary refill: <2 Seconds Gastrointestinal: Hypoactive, Soft and benign, Other (three dry dressings in place) Musculoskeletal: No swelling Integumentary: No rashes Neurological: Normal speech, Normal tone Lymphatics: No axilla or inguinal lymphadenopathy External genitalia: Deferred Rectal: Deferred - Studies Laboratory Data (last 24 hrs) 08/23/23 08/23/23 08/23/23 11:50 10:33 10:33 WBC 17.40 H Hgb 12.8 Hct 38.7 Plt Count 431 H PT 11.5 INR 1.05 APTT 26.4 Sodium 133 L Potassium 3.4 L BUN 6 L Creatinine 0.85 Glucose 146 H Total Bilirubin 0.6 AST 11 L ALT 24 Alkaline Phosphatase 85 Lipase 32 <Addie Medellin - Last Filed: 08/24/23 07:11> Assessment And Plan - Plan Acute appendicitis: Consult Dr. Baron - done Status post Appendectomy Zosyn 3.375gms Q 6h Sepsis without shock: trend vital signs, labs, continue IV abx IVF as above dictates Hypokalemia, NPO status: Ns at 125ml/hr monitor and replete electrolytes clear liquids when cleared by Dr. Baron Essential Hypertension: trend blood pressure reconcile home medications and treat prn pt takes losartan/hctz 100/25 at home. Will give po Losartan 100mg daily for now SCDs for DVT prophylaxis as she is surgical today Code Status: full Discharge Plan: Home Plan to discharge in: 48 Hours <Addie Medellin - Last Filed: 08/24/23 07:11> Date of Service: 08/24/23 Patient was seen and examined. Agree with findings as mentioned above. Patient's white blood cell count was still slightly elevated. Will recheck in the morning and patient is getting out of bed and ambulating and doing really well. Anticipate discharge tomorrow morning. <Helio Camarillo - Last Filed: 08/25/23 03:54>
[2023-08-24] MEDS: LOSARTAN POTASSIUM 50 MG TABLET PO SCH (07:53)
--- NOTE | 2023-08-24 12:49 | PN ---
Date of Progress Note: 08/24/2023 Subjective: The patient is awake, alert, tolerating clear liquids. Pain is controlled well on pain medication. She is ambulating. Objective: Vital Signs: Stable. She is afebrile. Abdomen: Soft. Dressing is clean, dry, and intact. Laboratory Data: Shows a white count of 15.1 with a left shift. Assessment: Status post laparoscopic appendectomy for acute appendicitis. Recommendations: Continue IV antibiotics for another 24 hours. Check white count. If it continues to decrease, she can probably be discharged home tomorrow. In the meantime, encourage ambulation, in centive spirometry. The patient is clinically improving. We will advance her diet as well. /MODL Voice ID: [id number] Report ID: [id number]
[2023-08-24] MEDS: PANTOPRAZOLE 40MG TABLET PO SCH (13:38)
[2023-08-24] MEDS: NA CHLORIDE 0.9% 500 ML IV ONE (18:57)
[2023-08-24] MEDS: NA CHLORIDE 0.9% 1,000 ML IV SCH (19:49)
[2023-08-25 06:11] VITALS: BP 129/73
[2023-08-25 07:56] LABS: Absolute Eosinophils 0.1 K/uL (0-0.5); Absolute Lymphocytes (CBC) 1.3 K/uL (0.7-4.9); Absolute Monocytes 0.5 K/uL (0.1-1.3); Absolute Neutrophil 6.7 K/uL (1.8-8.0); Basophils % 0.3 % (0-1.3); Eosinophils % 0.8 % (0-4.4); Hematocrit 30.7 % (36.0-45.0); Hemoglobin 10.2 g/dL (12.0-15.0); Lymphocytes % 15.2 % (15.3-44.8); MCH 28.9 pg (27.0-35.0); MCHC 33.3 g/dL (32.0-36.0); MCV 86.6 fL (80-100); MPV 6.8 fL (7.6-11.3); Monocytes % 5.7 % (3.3-12.3); Platelets 337 thou/uL (152-406); RBC Red Blood Cell Count 3.54 M/uL (3.86-4.86); Red Cell Distribution Width 16.2 % (12.1-15.2)
[2023-08-25 08:14] LABS: Anion Gap 6.3 mEq/L (5.0-15.0); Potassium 3.3 mEq/L (3.5-5.1)
--- NOTE | 2023-08-25 09:39 | PN ---
Date of Progress Note: 08/25/2023 Subjective: The patient is awake, alert. No complaints. Tolerating diet. Had some gas pains last night, but after passing gas, she feels much better. Objective: Vital Signs: Stable. She is afebrile. Abdomen: Benign. Dressings are clean, dry, intact. Laboratory Data: White count is normal today. Left shift has markedly improved. Assessment: Status post laparoscopic appendectomy for acute appendicitis. Recommendations: Patient cleared for discharge. Discharge instructions given. The patient to vaughn w up with me in my office in a week. Cipro and Flagyl for 10 days and pain medication will be provid ed by the hospitalist team. /MODL Voice ID: [id number] Report ID: [id number]
[2023-08-25 11:02] VITALS: TEMP 98.5; O2SAT 92
[2023-08-25] MEDS ORDERED: PANTOPRAZOLE 40MG TABLET PO SCH (12:43)
--- NOTE | 2023-08-25 17:30 | EKG ---
Test Date: 2023-08-23 Test Time: 12:31:02 Breast Buffer: TL MEASUREMENT RESULTS: Intervals: Rate: 93 CT: 144 QRSD: 82 QT: 358 QTc: 445 [place]: P: 47 CT: 144 QRS: 56 T: 39 INTERPRETIVE STATEMENTS: Normal sinus rhythm Nonspecific ST abnormality Abnormal ECG No previous ECG available for comparison Electronically Signed On 08-25-23 17:23:31 CDT by Tony Santamaria
== END 2023-08-25 10:10 | disposition home or self-care (01) ==
LOC: ER 10:15 → ERHOLD 12:06 → 2ND 13:58 → 4TH 15:58
PROVIDERS: ADMIT Hospitalist; ATTEND Hospitalist
PROC: 0DTJ4ZZ Resection of Appendix, Percutaneous Endoscopic Approach (ICD-10-PCS; principal; 2023-08-23 14:00)
DX: K35.80 Unspecified acute appendicitis (principal); A41.9 Sepsis, unspecified organism; I10 Essential (primary) hypertension; F17.210 Nicotine dependence, cigarettes, uncomplicated; R63.0 Anorexia; R11.0 Nausea; R10.9 Unspecified abdominal pain; E87.6 Hypokalemia; Z68.22 Body mass index [BMI] 22.0-22.9, adult
CPT/HCPCS: 96365; 93005; 87040 ×2; 85025 ×3; 80048 ×2; 36415 ×2; 83735; 84100; 85610; 82947 ×7; 83605; 88304; 85730; 83690; 80053; 74177; 94010 ×2; 96375; 99285; 44970; Q9967; J2704; J2710; J2543 ×6; J2001; J2250; J3010; J1100; J2405 ×5; J7120; J7030 ×4; G0378 ×6

== ENCOUNTER 2023-11-21 14:12 | Inpatient (IN) | payer BC ==
--- OUTSIDE RECORDS SUMMARY | 2023-11-21 14:16 | XMS REPORT | Continuity of Care Document ---
Author Name Unknown Address [address] [facility] [address] [place] [address] [facility] Address [address] [facility] [address] [place] [address] Care Team Providers Care Heel [employer] Name Role Phone Cinthya BROWN, [facility] Primary Care Physician [phone] Medications Ordered Medication Name Filled Medication Name Start Date Stop Date Current Medication? Ordering Clinician Indication Dosage Frequency Signature (SIG) Comments Components Source LOSARTAN POTASSIUM/H YDROC 100-12.5 TAB 0 7-20 00:00: 00 No losartan 100 mg-hydrochl orothiazide 12.5 mg tablet 0 6-07 00:00: 00 No 1mg losartan 100 mg-hydrochl orothiazide 12.5 mg tablet 0 6-06 00:00: 00 No 1mg &lt 2021-0 6-05 00:00: 00 No losartan 100 mg-hydrochl orothiazide 12.5 mg tablet 0 5-05 00:00: 00 No 1mg losartan 100 mg-hydrochl orothiazide 12.5 mg tablet 2020-06 1-05 00:00: 00 No 1mg losartan 100 mg-hydrochl orothiazide 12.5 mg tablet 2020-06 0-04 00:00: 00 No 1mg losartan 100 mg-hydrochl orothiazide 12.5 mg tablet 0 1-15 00:00: 00 No 1mg losartan 100 mg-hydrochl orothiazide 12.5 mg tablet 2019-06 2-10 00:00: 00 No 1mg losartan 100 mg-hydrochl orothiazide 12.5 mg tablet 2019-06 1-12 00:00: 00 No 1mg losartan 100 mg-hydrochl orothiazide 12.5 mg tablet 2020-0 8-05 00:00: 00 No 1mg losartan 100 mg-hydrochl orothiazide 12.5 mg tablet 10-10 00:00: 00 No 1mg amlodipine 5 mg tablet 10-10 00:00: 00 No 1mg Vital Signs Vital Name Observation Time Observation Value Comments S ource BP Systolic 2022-03-23 16:08:00 170 mm[Hg] BP Diastolic 2022-03-23 16:08:00 119 mm[Hg] Weight Measured 2022-03-23 16:08:00 158.00 pounds Height Measured 2022-03-23 16:08:00 65.55 inches Body Temperature 2022-03-23 16:08:00 98.30 degrees Heart Rate 2022-03-23 16:08:00 96.00 /min Respiratory Rate 2022-03-23 16:08:00 18.00 /min BP Systolic 2021-11-16 15:14:00 159 mm[Hg] BP Diastolic 2021-11-16 15:14:00 101 mm[Hg] Weight Measured 2021-11-16 15:14:00 153.20 pounds Height Measured 2021-11-16 15:14:00 65.55 inches Body Temperature 2021-11-16 15:14:00 98.20 degrees Heart Rate 2021-11-16 15:14:00 83.00 /min Respiratory Rate 2021-11-16 15:14:00 18.00 /min BP Systolic 2021-04-16 15:38:00 135 mm[Hg] BP Diastolic 2021-04-16 15:38:00 84 mm[Hg] Weight Measured 2021-04-16 15:38:00 150.60 pounds Height Measured 2021-04-16 15:38:00 65.55 inches Body Temperature 2021-04-16 15:38:00 98.20 degrees Heart Rate 2021-04-16 15:38:00 80.00 /min Respiratory Rate 2021-04-16 15:38:00 BP Systolic 2020-06-26 13:51:00 132 mm[Hg] BP Diastolic 2020-06-26 13:51:00 88 mm[Hg] Weight Measured 2020-06-26 13:51:00 152.80 pounds Height Measured 2020-06-26 13:51:00 65.55 inches Body Temperature 2020-06-26 13:51:00 98.50 degrees Heart Rate 2020-06-26 13:51:00 88.00 /min Respiratory Rate 2020-06-26 13:51:00 17.00 /min Weight Measured 2020-03-05 11:24:00 153.80 pounds Height Measured 2020-03-05 11:24:00 65.55 inches Body Temperature 2020-03-05 11:24:00 97.20 degrees Heart Rate 2020-03-05 11:24:00 71.00 /min Respiratory Rate 2020-03-05 11:24:00 16.00 /min BP Systolic 2020-03-05 11:24:00 144 mm[Hg] BP Diastolic 2020-03-05 11:24:00 88 mm[Hg] BP Systolic 2020-03-05 11:14:00 144 mm[Hg] BP Diastolic 2020-03-05 11:14:00 88 mm[Hg] Weight Measured 2020-03-05 11:14:00 153.80 pounds Height Measured 2020-03-05 11:14:00 65.55 inches Body Temperature 2020-03-05 11:14:00 97.20 degrees Heart Rate 2020-03-05 11:14:00 71.00 /min Respiratory Rate 2020-03-05 11:14:00 16.00 /min BP Systolic 2019-10-11 15:16:00 110 mm[Hg] BP Diastolic 2019-10-11 15:16:00 77 mm[Hg] Weight Measured 2019-10-11 15:16:00 158.00 pounds Height Measured 2019-10-11 15:16:00 65.55 inches Body Temperature 2019-10-11 15:16:00 98.40 degrees Heart Rate 2019-10-11 15:16:00 88.00 /min Respiratory Rate 2019-10-11 15:16:00 16.00 /min Plan of Care Planned Activity Planned Date Details Comments Source Goal Plan of Care Note [code = 51494-9] Goal Plan of Care Note [code = 42169-3] Goal Plan of Care Note [code = 91215-9] Goal Plan of Care Note [code = 33000-1] Goal Plan of Care Note [code = 70616-1] Goal Plan of Care Note [code = 85456-7] Goal Plan of Care Note [code = 73807-2] Goal Plan of Care Note [code = 91975-5] Goal Plan of Care Note [code = 39194-6] Goal Plan of Care Note [code = 97640-8] Encounters Start Date/Time End Date/Time Encounter Type Admission Type Attending [facility] Care Department Encounter ID Source 2023-09-21 09:31:33 2023-09-21 09:31:33 Outpatient SFA SFA [id number] Ruslan Crocker 2023-07-24 14:47:01 2023-07-24 14:47:01 Outpatient SFA SFA [id number] Ruslan Crocker 2023-03-06 11:38:32 2023-03-06 11:38:32 Outpatient SFA SFA [id number] Ruslan Crocker 2023-02-27 15:40:23 2023-02-27 15:40:23 Outpatient SFA SFA [id number] Ruslan Crocker 2022-09-27 17:34:40 2022-09-27 17:34:40 Outpatient SFA SFA [id number] Ruslan Crocker 2022-04-26 17:00:59 2022-04-26 17:00:59 Outpatient SFA SFA [id number] Ruslan Crocker 2022-03-24 10:01:21 2022-03-24 10:01:21 Outpatient SFA SFA [id number] Ruslan Crocker 2022-03-23 15:59:48 2022-03-23 15:59:48 Outpatient SFA SFA [id number] Ruslan Crocker 2022-03-23 00:00:00 2022-03-23 00:00:00 Outpatient Visit [id number] Results Test Description Test Time Test Comments Results Result Co mments Source COMPREHENSIVE METABOLIC [id number] 05:21:52* Test Item Value Reference Range Interpretation Comme nts GLUCOSE (test code = 2217) 97 MG/DL 70-99 BUN (test code = 2208) 10 MG/DL 8-23 CREATININE (test code = 2214) 0.92 MG/DL 0.60-1.30 eGFR (2020 CKD-EPI) (test code = 18849) 71 ML/MIN/1.73 >60 CALC BUN/CREAT (test code = 2235) 11 RATIO 6-28 SODIUM (test code = 223) 144 MEQ/L 133-146 POTASSIUM (test code = 2228) 4.6 MEQ/L 3.5-5.4 CHLORIDE (test code = 2215) 108 MEQ/L 95-107 H CARBON DIOXIDE (test code = 2206) 27 MEQ/L 19-31 CALCIUM (test code = 220) 9.8 MG/DL 8.5-10.5 PROTEIN, TOTAL (test code = 222) 7.0 G/DL 6.1-8.3 ALBUMIN (test code = 220) 4.4 G/DL 3.5-5.2 CALC GLOBULIN (test code [...] 5-40 UNLESS OTHERWISE INDICATED, ALL TESTING [facility]FOR[facility] [address] [place] [id number] MARKETING SALES CONSULTANT: LUIZA IVAN M.D. CLIA NUMBER [id number] [facility] [place]. [id number] LIPID [id number] 00:00:00* Test Item Value Reference Range Interpretation Comme nts CHOLESTEROL (test code = 2210) 224 MG/DL TRIGLYCERIDES (test code = 2232) 150 MG/DL HDL CHOLESTEROL (test code = 2220) 75 MG/DL CALC LDL CHOL (test code = 2237) 123 MG/DL RISK RATIO LDL/HDL (test cod e = 2238) 1.64 RATIO LIPID [id number] 00:00:00* Test Item Value Reference Range Interpretation Comme nts CHOLESTEROL (test code = 2210) 224 MG/DL TRIGLYCERIDES (test code = 2232) 150 MG/DL HDL CHOLESTEROL (test code = 2220) 75 MG/DL CALC LDL CHOL (test code = 2237) 123 MG/DL RISK RATIO LDL/HDL (test cod e = 2238) 1.64 RATIO COMPREHENSIVE METABOLIC [id number] 00:00:00* Test Item Value Reference Range Interpretation Comme nts GLUCOSE (test code = 2217) 68 MG/DL BUN (test code = 2208) 12 MG/DL CREATININE (test code = 2214) 0.72 MG/DL eGFR AMER. (test cod e = 64172) 105 ML/MIN/1.73 eGFR NON- AMER. (test code = 19230) 91 ML/MIN/1.73 CALC BUN/CREAT (test code = 2235) 17 RATIO SODIUM (test code = 2231) 143 MEQ/L POTASSIUM (test code = 2228) 3.8 MEQ/L CHLORIDE (test code = 2215) 104 MEQ/L CARBON DIOXIDE (test code = 2206) 26 MEQ/L CALCIUM (test code = 2209) 10.1 MG/DL PROTEIN, TOTAL (test code = 2229) 7.0 G/DL ALBUMIN (test code = 2201) 4.3 G/DL CALC GLOBULIN (test code = 2240) 2.7 G/DL CALC A/G RATIO (test code = 2234) 1.6 RATIO BILIRUBIN, TOTAL (test code = 2207) 0.3 MG/DL ALKALINE PHOSPHATASE (test code = 2204) 85 U/L AST (test code = 2218) 20 U/L ALT (test code = 2219) 22 U/L COMPREHENSIVE METABOLIC [id number] 00:00:00* Test Item Value Reference Range Interpretation Comme nts GLUCOSE (test code = 2217) 68 MG/DL BUN (test code = 2208) 12 MG/DL CREATININE (test code = 2214) 0.72 MG/DL eGFR AMER. (test cod e = 10343) 105 ML/MIN/1.73 eGFR NON- AMER. (test code = 10442) 91 ML/MIN/1.73 CALC BUN/CREAT (test code = 2235) 17 RATIO SODIUM (test code = 2231) 143 MEQ/L POTASSIUM (test code = 2228) 3.8 MEQ/L CHLORIDE (test code = 2215) 104 MEQ/L CARBON DIOXIDE (test code = 2206) 26 MEQ/L CALCIUM (test code = 2209) 10.1 MG/DL PROTEIN, TOTAL (test code = 2229) 7.0 G/DL ALBUMIN (test code = 2201) 4.3 G/DL CALC GLOBULIN (test code = 2240) 2.7 G/DL CALC A/G RATIO (test code = 2234) 1.6 RATIO BILIRUBIN, TOTAL (test code = 2207) 0.3 MG/DL ALKALINE PHOSPHATASE (test code = 2204) 85 U/L AST (test code = 2218) 20 U/L ALT (test code = 2219) 22 U/L COMPREHENSIVE METABOLIC [id number] 00:00:00* Test Item Value Reference Range Interpretation Comme nts GLUCOSE (test code = 2217) 94 MG/DL BUN (test code = 2208) 13 MG/DL CREATININE (test code = 2214) 0.83 MG/DL eGFR AMER. (test cod e = 40705) 89 ML/MIN/1.73 eGFR NON- AMER. (test code = 49411) 77 ML/MIN/1.73 CALC BUN/CREAT (test code = 2235) 16 RATIO SODIUM (test code = 2231) 141 MEQ/L POTASSIUM (test code = 2228) 4.1 MEQ/L CHLORIDE (test code = 2215) 104 MEQ/L CARBON DIOXIDE (test code = 2206) 25 MEQ/L CALCIUM (test code = 2209) 9.7 MG/DL PROTEIN, TOTAL (test code = 2229) 7.4 G/DL ALBUMIN (test code = 2201) 4.3 G/DL CALC GLOBULIN (test code = 2240) 3.1 G/DL CALC A/G RATIO (test code = 2234) 1.4 RATIO BILIRUBIN, TOTAL (test code = 2207) 0.3 MG/DL ALKALINE PHOSPHATASE (test code = 2204) 74 U/L AST (test code = 2218) 19 U/L ALT (test code = 2219) 18 U/L COMPREHENSIVE METABOLIC [id number] 00:00:00* Test Item Value Reference Range Interpretation Comme nts GLUCOSE (test code = 2217) 94 MG/DL BUN (test code = 2208) 13 MG/DL CREATININE (test code = 2214) 0.83 MG/DL eGFR AMER. (test cod e = 96637) 89 ML/MIN/1.73 eGFR NON- AMER. (test code = 88998) 77 ML/MIN/1.73 CALC BUN/CREAT (test code = 2235) 16 RATIO SODIUM (test code = 2231) 141 MEQ/L POTASSIUM (test code = 2228) 4.1 MEQ/L CHLORIDE (test code = 2215) 104 MEQ/L CARBON DIOXIDE (test code = 2206) 25 MEQ/L CALCIUM (test code = 2209) 9.7 MG/DL PROTEIN, TOTAL (test code = 2229) 7.4 G/DL ALBUMIN (test code = 2201) 4.3 G/DL CALC GLOBULIN (test code = 2240) 3.1 G/DL CALC A/G RATIO (test code = 2234) 1.4 RATIO BILIRUBIN, TOTAL (test code = 2207) 0.3 MG/DL ALKALINE PHOSPHATASE (test code = 2204) 74 U/L AST (test code = 2218) 19 U/L ALT (test code = 2219) 18 U/L LIPID [id number] 00:00:00* Test Item Value Reference Range Interpretation Comme nts CHOLESTEROL (test code = 2210) 231 MG/DL TRIGLYCERIDES (test code = 2232) 112 MG/DL HDL CHOLESTEROL (test code = 2220) 74 MG/DL CALC LDL CHOL (test code = 2237) 135 MG/DL RISK RATIO LDL/HDL (test cod e = 2238) 1.82 RATIO LIPID [id number] 00:00:00* Test Item Value Reference Range Interpretation Comme nts CHOLESTEROL (test code = 2210) 231 MG/DL TRIGLYCERIDES (test code = 2232) 112 MG/DL HDL CHOLESTEROL (test code = 2220) 74 MG/DL CALC LDL CHOL (test code = 2237) 135 MG/DL RISK RATIO LDL/HDL (test cod e = 2238) 1.82 RATIO LIPID [id number] 00:00:00* Test Item Value Reference Range Interpretation Comme nts CHOLESTEROL (test code = 2210) 210 MG/DL TRIGLYCERIDES (test code = 2232) 151 MG/DL HDL CHOLESTEROL (test code = 2220) 73 MG/DL CALC LDL CHOL (test code = 2237) 111 MG/DL RISK RATIO LDL/HDL (test cod e = 2238) 1.52 RATIO LIPID [id number] 00:00:00* Test Item Value Reference Range Interpretation Comme nts CHOLESTEROL (test code = 2210) 210 MG/DL TRIGLYCERIDES (test code = 2232) 151 MG/DL HDL CHOLESTEROL (test code = 2220) 73 MG/DL CALC LDL CHOL (test code = 2237) 111 MG/DL RISK RATIO LDL/HDL (test cod e = 2238) 1.52 RATIO COMPREHENSIVE METABOLIC [id number] 00:00:00* Test Item Value Reference Range Interpretation Comme nts GLUCOSE (test code = 2217) 99 MG/DL BUN (test code = 2208) 14 MG/DL CREATININE (test code = 2214) 0.88 MG/DL eGFR AMER. (test cod e = 82302) 83 ML/MIN/1.73 eGFR NON- AMER. (test code = 02943) 72 ML/MIN/1.73 CALC BUN/CREAT (test code = 2235) 16 RATIO SODIUM (test code = 2231) 141 MEQ/L POTASSIUM (test code = 2228) 4.1 MEQ/L CHLORIDE (test code = 2215) 104 MEQ/L CARBON DIOXIDE (test code = 2206) 24 MEQ/L CALCIUM (test code = 2209) 9.8 MG/DL PROTEIN, TOTAL (test code = 2229) 7.0 G/DL ALBUMIN (test code = 2201) 4.1 G/DL CALC GLOBULIN (test code = 2240) 2.9 G/DL CALC A/G RATIO (test code = 2234) 1.4 RATIO BILIRUBIN, TOTAL (test code = 2207) <0.2 MG/DL ALKALINE PHOSPHATASE (test code = 2204) 77 U/L AST (test code = 2218) 21 U/L ALT (test code = 2219) 18 U/L COMPREHENSIVE METABOLIC [id number] 00:00:00* Test Item Value Reference Range Interpretation Comme nts GLUCOSE (test code = 2217) 99 MG/DL BUN (test code = 2208) 14 MG/DL CREATININE (test code = 2214) 0.88 MG/DL eGFR AMER. (test cod e = 78996) 83 ML/MIN/1.73 eGFR NON- AMER. (test code = 25592) 72 ML/MIN/1.73 CALC BUN/CREAT (test code = 2235) 16 RATIO SODIUM (test code = 2231) 141 MEQ/L POTASSIUM (test code = 2228) 4.1 MEQ/L CHLORIDE (test code = 2215) 104 MEQ/L CARBON DIOXIDE (test code = 2206) 24 MEQ/L CALCIUM (test code = 2209) 9.8 MG/DL PROTEIN, TOTAL (test code = 2229) 7.0 G/DL ALBUMIN (test code = 2201) 4.1 G/DL CALC GLOBULIN (test code = 2240) 2.9 G/DL CALC A/G RATIO (test code = 2234) 1.4 RATIO BILIRUBIN, TOTAL (test code = 2207) <0.2 MG/DL ALKALINE PHOSPHATASE (test code = 2204) 77 U/L AST (test code = 2218) 21 U/L ALT (test code = 2219) 18 U/L [id number] 00:00:00* Test Item Value Reference Range Interpretation Comme nts TSH, THIRD GENERATION (test code = 2821) 2.010 UIU/ML [id number] 00:00:00* Test Item Value Reference Range Interpretation Comme nts TSH, THIRD GENERATION (test code = 2821) 2.010 UIU/ML [id number] 00:00:00* Test Item Value Reference Range Interpretation Comme nts TSH, THIRD GENERATION (test code = 2821) 2.010 UIU/ML
[2023-11-21] MEDS ORDERED: MORPHINE 4 MG/ML SYR ONE (14:34)
[2023-11-21] MEDS ORDERED: ONDANSETRON 4 MG/2 ML VIAL ONE (14:34)
[2023-11-21] MEDS ORDERED: NA CHLORIDE 0.9% 1,000 ML ONE (14:35)
[2023-11-21 14:52] LABS: Absolute Lymphocytes (CBC) 1.6 K/uL (0.7-4.9); Absolute Monocytes 0.8 K/uL (0.1-1.3); Absolute Neutrophil 8.5 K/uL (1.8-8.0); Basophils % 0.4 % (0-1.3); Eosinophils % 0.3 % (0-4.4); Hematocrit 42.4 % (36.0-45.0); Lymphocytes % 14.9 % (15.3-44.8); MCH 29.9 pg (27.0-35.0); MCHC 33.1 g/dL (32.0-36.0); MCV 90.2 fL (80-100); MPV 7.5 fL (7.6-11.3); Monocytes % 7.7 % (3.3-12.3); Neutrophils % 76.7 % (41.7-73.7); Platelets 492 thou/uL (152-406); Red Cell Distribution Width 15.4 % (12.1-15.2)
[2023-11-21 15:09] LABS: Sqamous Epithelial <5 /HPF (None Seen); Urine Bacteria <20 /HPF (<20); Urine Bilirubin NEGATIVE (Negative); Urine Blood Negative (Negative); Urine Clarity Clear (Clear); Urine Color Colorless (Yellow); Urine Culture Reflex Order NOT NEEDED; Urine Glucose NEGATIVE (Negative); Urine Ketones TRACE (Negative); Urine Microscopic Reflex YN ORDER UMIC; Urine Mucus Slight /HPF (None Seen); Urine Nitrite NEGATIVE (Negative); Urine Protein NEGATIVE (Negative); Urine RBC <5 /HPF (None Seen); Urine Urobilinogen Normal (Normal); Urine WBC <5 /HPF (<5); Urine pH 7.5 (5.0-7.0)
[2023-11-21 15:12] LABS: Albumin 3.8 g/dL (3.4-5.0); Albumin/Globulin Ratio 0.9 (1.1-1.8); Anion Gap 10.4 mEq/L (5.0-15.0); Bilirubin Total 0.6 mg/dL (0.2-1.0); Globulin 4.1 g/dL (2.3-3.5); Potassium 3.4 mEq/L (3.5-5.1); Protein, Total 7.9 g/dL (6.4-8.2)
--- NOTE | 2023-11-21 16:19 | RAD REPORT ---
EXAM DESCRIPTION: CT - Abdomen Pelvis W Contrast - 11/21/2023 2:54 pm CLINICAL HISTORY: ABD PAIN COMPARISON: Abdomen Pelvis W Contrast dated 08/23/2023 TECHNIQUE: Thin cut axial CT imaging of the abdomen and pelvis was performed following intravenous a dministration of 100 mL Isovue 300. Multiplanar reformats were generated and reviewed. All CT scans are performed using dose optimization technique as appropriate and may include automated exposure control or mA/KV adjustment according to patient size. FINDINGS: No suspicious findings in the lung bases. Moderate hiatal hernia. The liver, spleen, adrenal glands, and pancreas show no suspicious findings. Gallbladder and biliary tree are also without suspicious finding. Symmetric renal function is seen with no hydronephrosis or suspicious renal mass. Mild fluid opacification of distal small bowel loops, with no focal transition point. Surgical clips along the base of the cecum suggesting prior appendicectomy. No bowel wall thickening. No free air, f ree fluid or inflammatory stranding. No hernia, mass or bulky lymphadenopathy. Uterus is retroverted with small calcified fibroids. The urinary bladder is without significant finding. No suspicious bony findings. IMPRESSION: Mild fluid opacification of nondilated distal small bowel loops, may suggest mild ileus or enteritis. Other incidental findings as above, including a moderate-sized hiatal hernia.
[2023-11-21] MEDS ORDERED: METRONIDAZOLE 500mg IVPB 500 MG/100 ML BAG IV ONE (16:42)
[2023-11-21] MEDS ORDERED: CIPROFLOXACIN 400mg IV 400 MG/200 ML BAG IV ONE (16:42)
--- NOTE | 2023-11-21 17:13 | ER ---
Nurse's Notes [facility] Name: Meli Richardson Age: 63 yrs Sex: Female : 1960 Arrival Date: 11/21/2023 Time: 14:12 Bed 4 Private MD: Diagnosis: Gastroenteritis, hyponatremia, dehydration Presentation: 11/20 14:27 Chief complaint: Patient states: Started N/V Monday night after a shrimp boil. + dizzy, ll1 N/V, and chills since. No known fever. Coronavirus screen: Client denies travel out of the [place] in the last 14 days. At this time, the client does not indicate any symptoms associated with coronavirus-19. Ebola Screen: Patient denies travel to an Ebola-affected area in the 21 days before illness onset. Initial Sepsis Screen: Does the patient meet any 2 criteria? No. Patient's initial sepsis screen is negative. Does the patient have a suspected source of infection? No. Patient's initial sepsis screen is negative. Risk Assessment: Do you want to hurt yourself or someone else? Patient reports no desire to harm self or others. Onset of symptoms was November 17, 2023. 14:27 Method Of Arrival: Ambulatory ll1 14:27 Acuity: CALLY 3 ll1 Triage Assessment: 14:28 General: Appears uncomfortable, Behavior is calm, cooperative, appropriate for age. ll1 Pain: Denies pain. GI: Reports cramping, intolerance of food, nausea, vomiting. Historical: - Allergies: 14:19 No Known Allergies; ll1 - PMHx: 14:19 Hypercholesterolemia; Hypertension; ll1 - Immunization history:: Adult Immunizations up to date. - Infectious Disease History:: Denies. - Social history:: Smoking status: unknown. Screenin:03 [facility] ED Fall Risk Assessment (Adult) History of falling in the last 3 months, db including since admission No falls in past 3 months (0 pts) Confusion or Disorientation No (0 pts) Intoxicated or Sedated No (0 pts) Impaired Gait No (0 pts) Mobility Assist Device Used No (0 pt) Altered Elimination No (0 pt) Score/Fall Risk Level 0 - 2 = Low Risk Oriented to surroundings, Maintained a safe environment. Abuse screen: Denies threats or abuse. Denies injuries from another. Nutritional screening: No deficits noted. Tuberculosis screening: No symptoms or risk factors identified. Assessment: 14:59 Reassessment: Patient appears in no apparent distress at this time. Patient and/or db family updated on plan of care and expected duration. Pain level reassessed. Patient is alert, oriented x 3, equal unlabored respirations, skin warm/dry/pink. General: Appears in no apparent distress. comfortable, Behavior is calm, cooperative. Pain: Complains of pain in abdomen. Neuro: Level of Consciousness is awake, alert, obeys commands, Oriented to person, place, time, situation. Cardiovascular: No deficits noted. Respiratory: Airway is patent Respiratory effort is even, unlabored, Respiratory pattern is regular, symmetrical. GI: Abdomen is flat, Reports lower abdominal pain, nausea, vomiting. 15:59 Reassessment: Patient appears in no apparent distress at this time. No changes from kc6 previously documented assessment. Patient and/or family updated on plan of care and expected duration. Pain level reassessed. Patient is alert, oriented x 3, equal unlabored respirations, skin warm/dry/pink. 16:33 Reassessment: Patient appears in no apparent distress at this time. Patient and/or db family updated on plan of care and expected duration. Pain level reassessed. Patient is alert, oriented x 3, equal unlabored respirations, skin warm/dry/pink. 16:59 Reassessment: Patient appears in no apparent distress at this time. No changes from kc6 previously documented assessment. Patient and/or family updated on plan of care and expected duration. Pain level reassessed. Patient is alert, oriented x 3, equal unlabored respirations, skin warm/dry/pink. Vital Signs: 14:27 BP 106 / 62; Pulse 100; Resp 17; Temp 97.9(O); Pulse Ox 96% on R/A; Weight 64.41 kg; ll1 Height 5 ft. 7 in. ; Pain 0/10; 14:55 BP 104 / 72; Pulse 83; Resp 16; Pulse Ox 100% on R/A; db 15:30 BP 123 / 78; Pulse 85; Resp 18; Pulse Ox 100% on R/A; db 16:00 BP 114 / 77; Pulse 82; Resp 18; Pulse Ox 99% on R/A; db 16:33 BP 116 / 81; Pulse 86; Resp 18; Pulse Ox 99% on R/A; db 17:10 BP 123 / 89; Pulse 88; Resp 17 S; Pulse Ox 99% on R/A; kc6 14:27 Body Mass Index 22.24 (64.41 kg, 170.18 cm) ll1 14:27 Pain Scale: Adult ll1 ED Course: 14:14 Patient arrived in ED. im 14:14 Eduardo Apple MD is Attending Physician. sp3 14:19 Arm band placed on Patient placed in an exam room, on a stretcher. ll1 14:28 Triage completed. ll1 14:28 Winsome Marques, CHELSEA is Primary Nurse. db 14:40 Inserted saline lock: 22 gauge in left antecubital area, using aseptic technique. Blood db collected. 14:56 CT Abd/Pelvis - IV Contrast Only In Process Unspecified. EDMS 17:12 Helio Camarillo MD is Hospitalizing Provider. sp3 17:20 Patient has correct armband on for positive identification. Bed in low position. Call db light in reach. Side rails up X 1. Client placed on continuous cardiac and pulse oximetry monitoring. NIBP monitoring applied. air sampling and monitoring on. Pulse ox on. NIBP on. Warm blanket given. Pillow given. 18:08 Provided Education on: ADMISSION. db 18:08 No provider procedures requiring assistance completed. Patient admitted, IV remains in db place. Administered Medications: 14:45 Drug: NS 0.9% IV 1000 ml IV at 1 bolus Per protocol; 1000 mL bolus Route: IV; Rate: 1 db bolus; Site: left antecubital; 17:43 Follow up: Response: No adverse reaction; IV Status: Completed infusion; IV Intake: db 1000ml 14:45 Drug: Ondansetron IVP 4 mg IVP once; over 2 minutes Route: IVP; Site: left antecubital; db 17:43 Follow up: Response: No adverse reaction db 14:45 Drug: morphine IVP or IV 4 mg IVP once over 4 mins Route: IVP; Infused Over: 4 mins; db Site: left antecubital; 17:44 Follow up: Response: No adverse reaction db 16:49 Drug: Ciprofloxacin IVPB 400 mg 200 ml IVPB once over 60 mins Volume: 200 ml; Route: kc6 IVPB; Infused Over: 60 mins; Site: left antecubital; 18:00 Follow up: Response: No adverse reaction db 16:50 Drug: metroNIDAZOLE IVPB 500 mg 100 ml IVPB at 200 ml/hr once over 30 mins Volume: 100 kc6 ml; Route: IVPB; Rate: 200 ml/hr; Infused Over: 30 mins; Site: left antecubital; 18:00 Follow up: Response: No adverse reaction db 17:30 Drug: Lactated Ringers Solution IV 1000 ml IV at 150 ml/hr continuous Route: IV; Rate: ll1 150 ml/hr; Site: left antecubital; 18:00 Follow up: IV Status: Infusion continued upon admission db Medication: 17:42 VIS not applicable for this client. db Intake: 17:43 IV: 1000ml; Total: 1000ml. db Outcome: 17:13 Decision to Hospitalize by Provider. sp3 18:08 Admitted to ER Hold. Please see [facility] for further documentation. db 18:08 Condition: stable 18:08 Instructed on the need for admit, 18:09 Patient left the ED. ll1 Signatures: Dispatcher [employer] Krysta Lopez RN RN ll1 Eduardo Apple MD MD sp3 Ella Miller RN RN kc6 Winsome Marques RN RN db Yocatsa Galvez
--- NOTE | 2023-11-21 17:13 | EDPHYS ---
Physician Documentation [facility] Name: Meli Richardson Age: 63 yrs Sex: Female : 1960 Arrival Date: 11/21/2023 Time: 14:12 Bed 4 Private MD: ED Physician Eduardo Apple HPI: 11/20 14:45 This 63 yrs old Female presents to ER via Ambulatory with complaints of sp3 Nausea/Vomiting, Abdominal Pain, Weakness. 14:45 63-year-old female with a history of hyperlipidemia, hypertension and appendectomy with sp3 removal last month now presents to the ED with chief complaint abdominal pain, vomiting, belching and generalized weakness. Patient states that she potentially had bad crawfish/seafood that is the cause of her symptoms. Patient denies any other abdominal surgery except a BTL. No diarrhea reported. 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 Historical: - Allergies: 14:19 No Known Allergies; ll1 - PMHx: 14:19 Hypercholesterolemia; Hypertension; ll1 - Immunization history:: Adult Immunizations up to date. - Infectious Disease History:: Denies. - Social history:: Smoking status: unknown. ROS: 14:46 Constitutional: Negative for fever, chills, and weight loss, Eyes: Negative for injury, sp3 pain, redness, and discharge, Neck: Negative for injury, pain, and swelling, Cardiovascular: Negative for chest pain, palpitations, and edema, Respiratory: Negative for shortness of breath, cough, wheezing, and pleuritic chest pain, Back: Negative for injury and pain, MS/Extremity: Negative for injury and deformity, Skin: Negative for injury, rash, and discoloration, Neuro: Negative for headache, weakness, numbness, tingling, and seizure, Psych: Negative for depression, anxiety, suicide ideation, homicidal ideation, and hallucinations, Allergy/Immunology: Negative for hives, rash, and allergies, Endocrine: Negative for neck swelling, polydipsia, polyuria, polyphagia, and marked weight changes, Hematologic/Lymphatic: Negative for swollen nodes, abnormal bleeding, and unusual bruising, 14:46 All other systems are negative, Exam: 14:46 Constitutional: This is a well developed, well nourished patient who is awake, alert, sp3 and in no acute distress. Head/Face: Normocephalic, atraumatic. Eyes: Pupils equal round and reactive to light, extra-ocular motions intact. Lids and lashes normal. Conjunctiva and sclera are non-icteric and not injected. Cornea within normal limits. Periorbital areas with no swelling, redness, or edema. Neck: Trachea midline, no thyromegaly or masses palpated, and no cervical lymphadenopathy. Supple, full range of motion without nuchal rigidity, or vertebral point tenderness. No Meningismus. Chest/axilla: Normal chest wall appearance and motion. Nontender with no deformity. No lesions are appreciated. Cardiovascular: Regular rate and rhythm with a normal S1 and S2. No gallops, murmurs, or rubs. Normal PMI, no JVD. No pulse deficits. Respiratory: Lungs have equal breath sounds bilaterally, clear to auscultation and percussion. No rales, rhonchi or wheezes noted. No increased work of breathing, no retractions or nasal flaring. Back: No spinal tenderness. No costovertebral tenderness. Full range of motion. Skin: Warm, dry with normal turgor. Normal color with no rashes, no lesions, and no evidence of cellulitis. MS/ Extremity: Pulses equal, no cyanosis. Neurovascular intact. Full, normal range of motion. Neuro: Awake and alert, GCS 15, oriented to person, place, time, and situation. Cranial nerves II-XII grossly intact. Motor strength 5/5 in all extremities. Sensory grossly intact. Cerebellar exam normal. Normal gait. Psych: Awake, alert, with orientation to person, place and time. Behavior, mood, and affect are within normal limits. 14:46 Abdomen/GI: Mild epigastric pain to palpation without peritoneal signs, rebound or guarding. Vital signs are within normal limits with pulse at 100., 14:50 ECG was reviewed by the Attending Physician. EKG demonstrates normal sinus rhythm at 96 sp3 bpm with normal intervals, normal QRS, normal axis, nonspecific ST's ST changes without evidence of acute ischemia. Vital Signs: 14:27 BP 106 / 62; Pulse 100; Resp 17; Temp 97.9(O); Pulse Ox 96% on R/A; Weight 64.41 kg; ll1 Height 5 ft. 7 in. ; Pain 0/10; 14:55 BP 104 / 72; Pulse 83; Resp 16; Pulse Ox 100% on R/A; db 15:30 BP 123 / 78; Pulse 85; Resp 18; Pulse Ox 100% on R/A; db 16:00 BP 114 / 77; Pulse 82; Resp 18; Pulse Ox 99% on R/A; db 16:33 BP 116 / 81; Pulse 86; Resp 18; Pulse Ox 99% on R/A; db 17:10 BP 123 / 89; Pulse 88; Resp 17 S; Pulse Ox 99% on R/A; kc6 14:27 Body Mass Index 22.24 (64.41 kg, 170.18 cm) ll1 14:27 Pain Scale: Adult ll1 MDM: 14:23 Patient medically screened. sp3 14:47 Data reviewed: vital signs, nurses notes, old medical records, lab test result(s), EKG, sp3 radiologic studies. ED course: 63-year-old female with PMH above now with epigastric abdominal pain. Differential diagnosis includes foodborne illness, gastroenteritis, pancreatitis, biliary pathology, colitis and to a lesser degree acute coronary syndrome. Clinically I am not highly suspicious for sepsis, shock, aortic pathology, PE, pneumonia, or any other critical illness. Workup will include CT scan of the abdomen pelvis, laboratory values, urine analysis, and treatment with normal saline, morphine and ondansetron IV. Disposition pending workup and patient course with probable discharge if workup is negative.. 17:11 ED course: Repeat sodium at 128. GI losses are only on emesis with what appears to be a sp3 brewing enteritis on CT. Antibiotics have been given and lactated Ringer's have also been started. We will place in observation admission under hospitalist service.. 11/20 14:26 Order name: CBC with Diff; Complete Time: 15:53 sp3 11/20 14:26 Order name: CMP; Complete Time: 15:53 sp3 11/20 14:26 Order name: Lipase; Complete Time: 15:53 sp3 11/20 14:26 Order name: Urinalysis w/ reflexes; Complete Time: 15:53 sp3 06/11 14:26 Order name: Troponin High Sensitivity; Complete Time: 15:53 sp3 11/20 14:26 Order name: Lactate w/ 2H reflex if indic.; Complete Time: 17:16 sp3 11/20 16:29 Order name: BMP; Complete Time: 17:16 sp3 11/20 17:22 Order name: C.difficile GDH Ag EDMS 11/20 17:23 Order name: CBC with Automated Diff EDMS 11/20 17:23 Order name: CBC with Automated Diff EDMS 11/20 17:23 Order name: Comprehensive Metabolic Panel EDMS 11/20 17:23 Order name: Comprehensive Metabolic Panel EDMS 11/20 17:23 Order name: Fecal Leukocyte Stain EDMS 11/20 17:23 Order name: Stool Culture EDMS 11/20 14:26 Order name: CT Abd/Pelvis - IV Contrast Only; Complete Time: 16:20 sp3 11/20 14:26 Order name: IV Saline Lock; Complete Time: 14:58 sp3 11/20 14:26 Order name: Labs collected and sent; Complete Time: 14:58 sp3 11/20 14:26 Order name: EKG - Nurse/Tech; Complete Time: 14:51 sp3 Administered Medications: 14:45 Drug: NS 0.9% IV 1000 ml IV at 1 bolus Per protocol; 1000 mL bolus Route: IV; Rate: 1 db bolus; Site: left antecubital; 17:43 Follow up: Response: No adverse reaction; IV Status: Completed infusion; IV Intake: db 1000ml 14:45 Drug: Ondansetron IVP 4 mg IVP once; over 2 minutes Route: IVP; Site: left antecubital; db 17:43 Follow up: Response: No adverse reaction db 14:45 Drug: morphine IVP or IV 4 mg IVP once over 4 mins Route: IVP; Infused Over: 4 mins; db Site: left antecubital; 17:44 Follow up: Response: No adverse reaction db 16:49 Drug: Ciprofloxacin IVPB 400 mg 200 ml IVPB once over 60 mins Volume: 200 ml; Route: kc6 IVPB; Infused Over: 60 mins; Site: left antecubital; 18:00 Follow up: Response: No adverse reaction db 16:50 Drug: metroNIDAZOLE IVPB 500 mg 100 ml IVPB at 200 ml/hr once over 30 mins Volume: 100 kc6 ml; Route: IVPB; Rate: 200 ml/hr; Infused Over: 30 mins; Site: left antecubital; 18:00 Follow up: Response: No adverse reaction db 17:30 Drug: Lactated Ringers Solution IV 1000 ml IV at 150 ml/hr continuous Route: IV; Rate: ll1 150 ml/hr; Site: left antecubital; 18:00 Follow up: IV Status: Infusion continued upon admission db Disposition Summary: 11/21/23 17:13 Hospitalization Ordered Notes: Hospitalization Status: Observation sp3 Provider: Helio Camarillo sp3 Location: Telemetry/MedSurg (observation) sp3 Condition: Stable sp3 Problem: an acute exacerbation sp3 Symptoms: have worsened sp3 Bed/Room Type: Standard sp3 Room Assignment: 409(11/21/23 17:35) bd Diagnosis - Gastroenteritis, hyponatremia, dehydration sp3 Forms: - Medication Reconciliation Form sp3 - SBAR form sp3 - Leadership Thank You Letter sp3 Signatures: Dispatcher [employer] EDMS Jennifer Ogden Lynsay, RN RN ll1 Eduardo Apple MD MD sp3 Ella Miller RN RN kc6 Winsome Marques RN RN db Corrections: (The following items were deleted from the chart) 14:27 14:27 CBC+H.LAB.BRZ ordered. EDMS EDMS 14:27 14:27 COMPREHENSIVE METABOLIC PANEL+C.LAB.BRZ ordered. EDMS EDMS 14:27 14:27 LIPASE+C.LAB.BRZ ordered. EDMS EDMS 14:27 14:27 Urinalysis+U.LAB.BRZ ordered. EDMS EDMS 14:27 14:27 Troponin High Sensitivity+C.LAB.BRZ ordered. EDMS EDMS 14:27 14:27 LACTATE+C.LAB.BRZ ordered. EDMS EDMS 17:35 17:13 sp3 bd
[2023-11-21] MEDS ORDERED: LOPERAMIDE HCL 2 MG CAPSULE PO PRN (17:17)
[2023-11-21] MEDS ORDERED: ACETAMINOPHEN 500 MG TAB PO PRN (17:17)
[2023-11-21] MEDS ORDERED: ONDANSETRON 4 MG/2 ML VIAL IV PRN (17:17)
--- NOTE | 2023-11-21 17:17 | P.HP ---
Certification for Inpatient Patient admitted to: Observation With expected LOS: <2 Midnights Patient will require the following post-hospital care: None Practitioner: I am a practitioner with admitting privileges, knowledge of patient current condition, hospital course, and medical plan of care. Services: Services provided to patient in accordance with Admission requirements found in Title 42 Section 412.3 of the Code of Federal Regulations Patient History Date of Service: 11/21/23 Reason for admission: N/V/D; hyponatremia History of Present Illness: Ms. Richardson is a 63-year-old with a past medical history of hypertension who smokes 1/2 pack/day of cigarettes. She arrived to the ER today with a chief complaint of significant right lower quadrant pain, anorexia, nausea. She has not been able to tolerate foods for greater than [address] evaluation she was found to have moderately severe acute appendicitis. Dr. Baron was consulted, he evaluated her in the emergency department, and took her to the OR for an appendectomy. Allergies No Known Allergies Allergy (Unverified 08/23/23 12:21) Home Medications: Atorvastatin Calcium [Lipitor*] 10 mg PO BEDTIME 08/24/23 Losartan/Hydrochlorothiazide [Losartan-Hctz 100-25 mg Tab] 1 tab PO DAILY 08/24/23 Ciprofloxacin HCl [Cipro 500 MG Tablet] 500 mg PO BID #20 tab 08/25/23 Hydrocodone 7.5/APAP 325 [[place] 7.5/325 mg] 1 tab PO Q6H PRN #30 tab 08/25/23 metroNIDAZOLE [Flagyl] 500 mg PO Q8H #30 tab 08/25/23 - Past Medical/Surgical History Diabetic: No -: HTN -: Thyroid cyst -: Removal of thyroid cyst at age 11 -: BTL Psychosocial/ Personal History: Lives at home with her . Smokes 1/2 ppd unless they are drinking. She states when they drink, she chain smokes - Family History Father Family History: Reviewed- Non-Contributory - Social History Smoking Status: Former smoker Alcohol use: Yes CD- Drugs: No Caffeine use: Yes Review of Systems 10-point ROS is otherwise unremarkable Physical Examination - Physical Exam General: Alert, In no apparent distress HEENT: Atraumatic, PERRLA, Mucous membr. moist/pink, EOMI, Sclerae nonicteric Neck: Supple, 2+ carotid pulse no bruit, No LAD, Without JVD or thyroid abnormality Respiratory: Clear to auscultation bilaterally, Normal air movement Cardiovascular: Regular rate/rhythm, Normal S1 S2 Gastrointestinal: Normal bowel sounds, No tenderness Musculoskeletal: No tenderness Integumentary: No rashes Neurological: Normal gait, Normal speech, Normal strength at 5/5 x4 extr, Normal tone, Normal affect Lymphatics: No axilla or inguinal lymphadenopathy - Studies Laboratory Data (last 24 hrs) 11/21/23 11/21/23 11/21/23 16:30 14:38 14:38 WBC 11.10 H Hgb 14.0 Hct 42.4 Plt Count 492 H Sodium 128 L 126 L Potassium 4.0 D 3.4 L BUN 12 12 Creatinine 0.83 1.14 H Glucose 108 H 118 H Total Bilirubin 0.6 AST 11 L ALT 24 Alkaline Phosphatase 79 Lipase 50 Assessment & Plan - Problems (Diagnosis) (1) Intractable nausea and vomiting Current Visit: Yes Status: Acute (2) Hyponatremia Current Visit: Yes Status: Acute - Advance Directives Does patient have a Living Will: No Does patient have a Durable POA for Healthcare: No
[2023-11-21] MEDS ORDERED: Ringers Lactate 1,000 ML IV ONE (17:23)
[2023-11-21] MEDS: NA CHLORIDE 0.9% 1,000 ML IV SCH (18:28)
[2023-11-21] MEDS: MORPHINE 4 MG/ML SYR IV PRN (18:37)
[2023-11-21 18:39] VITALS: BMI 22.4
[2023-11-21 19:01] VITALS: O2SAT 99
[2023-11-21] MEDS ORDERED: MAGNES/ALUMIN/SIMET 30ML UCUP PO PRN (22:50)
[2023-11-22 08:49] LABS: Absolute Eosinophils 0.1 K/uL (0-0.5); Absolute Lymphocytes (CBC) 1.5 K/uL (0.7-4.9); Absolute Monocytes 0.4 K/uL (0.1-1.3); Basophils % 0.4 % (0-1.3); Eosinophils % 1.1 % (0-4.4); Hematocrit 35.1 % (36.0-45.0); Hemoglobin 11.7 g/dL (12.0-15.0); Lymphocytes % 21.9 % (15.3-44.8); MCH 30.7 pg (27.0-35.0); MCHC 33.4 g/dL (32.0-36.0); MCV 91.7 fL (80-100); MPV 7.5 fL (7.6-11.3); Monocytes % 5.9 % (3.3-12.3); Neutrophils % 70.7 % (41.7-73.7); Platelets 351 thou/uL (152-406); RBC Red Blood Cell Count 3.83 M/uL (3.86-4.86); Red Cell Distribution Width 15.2 % (12.1-15.2)
[2023-11-22 09:05] LABS: ALT/SGPT 21 U/L (13-56); Albumin 3.2 g/dL (3.4-5.0); Albumin/Globulin Ratio 0.9 (1.1-1.8); Alkaline Phosphatase 66 U/L (45-117); Anion Gap 6.2 mEq/L (5.0-15.0); BUN Blood Urea Nitrogen 7 mg/dL (7-18); Bicarbonate 27 mEq/L (21-32); Bilirubin Total 0.4 mg/dL (0.2-1.0); Globulin 3.4 g/dL (2.3-3.5); Glomerular Filtration Rate 88 ml/min (=/>90); Glucose Level 127 mg/dL (74-106); Potassium 3.2 mEq/L (3.5-5.1); Protein, Total 6.6 g/dL (6.4-8.2); Sodium Level 130 mEq/L (136-145)
[2023-11-22 09:11] LABS: AST/SGOT < 10 U/L (15-37)
[2023-11-22] MEDS: POTASSIUM 25 MEQ EFFERV TAB PO ONE (12:21)
--- NOTE | 2023-11-22 12:25 | P.DS ---
Admission Date: 11/21/23 Discharge Date: 11/22/23 Disposition: ROUTINE DISCHARGE Discharge Condition: GOOD Reason for Admission: N/V/D; hyponatremia Brief History of Present Illness: Ms. Richardson is a 63-year-old with a past medical history of hypertension who smokes 1/2 pack/day of cigarettes. She arrived to the ER today with a chief complaint of significant right lower quadrant pain, anorexia, nausea. She has not been able to tolerate foods for greater than [address] evaluation she was found to have moderately severe acute appendicitis. Dr. Baron was consulted, he evaluated her in the emergency department, and took her to the OR for an appendectomy. - Physical Exam General: Alert, In no apparent distress HEENT: Atraumatic, PERRLA, Mucous membr. moist/pink, EOMI, Sclerae nonicteric Neck: Supple, 2+ carotid pulse no bruit, No LAD, Without JVD or thyroid abnormality Respiratory: Clear to auscultation bilaterally, Normal air movement Cardiovascular: Regular rate/rhythm, Normal S1 S2 Gastrointestinal: Normal bowel sounds, No tenderness Musculoskeletal: No tenderness Integumentary: No rashes Neurological: Normal gait, Normal speech, Normal strength at 5/5 x4 extr, Normal tone, Normal affect Lymphatics: No axilla or inguinal lymphadenopathy Hospital Course: Ms. Richardson is a 63-year-old with a past medical history of hypertension who smokes 1/2 pack/day of cigarettes. She arrived to the ER today with a chief complaint of significant right lower quadrant pain, anorexia, nausea. She has not been able to tolerate foods for greater than [address] evaluation she was found to have moderately enteritis, patient is tolerating diet, discharge home follow-up with PCP in 1 week, advance diet as tolerated, Assessment Abdominal pain nausea vomiting Hyponatremia, improved with IV fluids, Gastroenteritis symptoms improved with IV antiemetics, IV fluids, as needed analgesics Anorexic, unable to tolerate p.o. intake-symptoms improved with IV fluids, antiemetics, IV antibiotics. CT IMPRESSION: Mild fluid opacification of nondilated distal small bowel loops, may suggest mild ileus or enteritis.Other incidental findings as above, including a moderate-sized hiatal hernia. Continue home medicines as previously prescribed GOAL: Clear understanding of disease process INSTRUCTIONS: Physician Discharge Instructions: -Follow-up with PCP in 1 to 2 weeks -Please call Dr. Camarillo at [phone] if any questions regarding hospital stay -Please call nursing station at [phone] if any nursing or medication questions -Return to the emergency room if symptoms worsen Diet: ADA, low sodium Activity: Fall precautions Vital Signs/Physical Exam: Temp Pulse Resp BP Pulse Ox 96.8 F 74 16 132/81 100 11/22/23 08:00 11/22/23 08:00 11/22/23 08:00 11/22/23 08:00 11/22/23 08:00 Laboratory Data at Discharge: WBC 7.00 thou/uL (4.3-10.9) 11/22/23 08:26 Hgb 11.7 g/dL (12.0-15.0) L D 11/22/23 08:26 Hct 35.1 % (36.0-45.0) L 11/22/23 08:26 Plt Count 351 thou/uL (152-406) D 11/22/23 08:26 Sodium 130 mEq/L (136-145) L 11/22/23 08:26 Potassium 3.2 mEq/L (3.5-5.1) L D 11/22/23 08:26 BUN 7 mg/dL (7-18) 11/22/23 08:26 Creatinine 0.76 mg/dL (0.55-1.02) 11/22/23 08:26 Glucose 127 mg/dL (74-106) H 11/22/23 08:26 Total Bilirubin 0.4 mg/dL (0.2-1.0) 11/22/23 08:26 AST < 10 U/L (15-37) L 11/22/23 08:26 ALT 21 U/L (13-56) 11/22/23 08:26 Alkaline Phosphatase 66 U/L (45-117) 11/22/23 08:26 Lipase 50 U/L (13-75) 11/21/23 14:38 Home Medications: Atorvastatin Calcium [Lipitor*] 10 mg PO DAILY 08/24/23 Losartan/Hydrochlorothiazide [Losartan-Hctz 100-25 mg Tab] 1 tab PO DAILY 08/24/23 Diet: [place] Activity: Fall precautions Followup: [facility] [Primary Care Provider] - Time spent managing pt's care (in minutes): 55
[2023-11-22 14:26] VITALS: BP 120/75; TEMP 97.7
--- NOTE | 2023-11-23 12:15 | EKG ---
Test Date: 2023-11-21 Test Time: 14:42:57 House Fellow: ROBERT MEASUREMENT RESULTS: Intervals: Rate: 96 ND: 138 QRSD: 80 QT: 342 QTc: 432 [place]: P: 34 ND: 138 QRS: 26 T: 67 INTERPRETIVE STATEMENTS: Normal sinus rhythm Nonspecific ST abnormality Abnormal ECG Compared to ECG 08/23/2023 12:31:02 No significant changes Electronically Signed On 11-23-23 12:14:00 CDT by Raphael Cabral
== END 2023-11-22 13:50 | disposition home or self-care (01) | DRG 392 ==
LOC: ER 14:12 → 4TH 17:17
PROVIDERS: ADMIT Hospitalist; ATTEND Hospitalist
DX: K52.9 Noninfective gastroenteritis and colitis, unspecified (principal); E87.1 Hypo-osmolality and hyponatremia; K56.7 Ileus, unspecified; I10 Essential (primary) hypertension; E86.0 Dehydration; E78.00 Pure hypercholesterolemia, unspecified; K44.9 Diaphragmatic hernia without obstruction or gangrene; F17.210 Nicotine dependence, cigarettes, uncomplicated; Z90.49 Acquired absence of other specified parts of digestive tract; Z79.899 Other long term (current) drug therapy
CPT/HCPCS: 36415; 74177; 80048; 80053; 81001; 83605; 83690; 84484; 85025; 93005; 96361; 96374; 96375; 99285; J0744; J2405; J7030; J7120; Q9967